=== PATIENT | male | born 1940 | race Caucasian/White ===

== ENCOUNTER 2017-11-02 22:20 | Inpatient (IN) | payer MEDICARE ==
[2017-11-02 23:05] LABS: #Basophils 0.1 thou/uL (0.0-0.2); #Eosinphils 0.4 thou/uL (0.0-0.7); #Lymphocytes 2.6 thou/uL (1.20-3.40); #Monocytes 0.7 thou/uL (0.11-0.59); #Neutrophils 4.1 thou/uL (1.40-6.50); %Basophils 0.7 % (0.0-1.0); %Eosinophils 5.1 % (0.0-10.0); %Lymphocytes 32.7 % (21.0-51.0); %Monocytes 9.3 % (0.0-10.0); %Neutrophils 52.1 % (42.0-75.0); Hemoglobin 10.6 g/dL (14.0-18.0); Mean Corpuscular HGB CONC 32.8 g/dL (32.0-36.0); Mean Corpuscular Hemoglobin 25.1 pg (27.0-31.0); Mean Corpuscular Volume 76.5 fl (80.0-94.0); Mean Platelet Volume 7.1 fL (7.4-10.4); Platelet Count 263 thou/uL (130-400); RBC Distribution Width 15.2 % (11.5-14.5); Red Blood Cell (RBC) Count 4.21 mill/uL (4.70-6.10); White Blood Cell (WBC) Count 7.9 thou/uL (4.8-10.8)
[2017-11-02 23:25] LABS: ALT (SGPT) 12 U/L (8-55); AST (SGOT) 16 U/L (5-34); Albumin 4.2 g/dL (3.4-4.8); Alkaline Phosphatase 110 U/L (40-150); Anion Gap 14 mmol/L (10-20); BUN (Urea Nitrogen) 16 mg/dL (8.4-25.7); Bilirubin, Total 0.4 mg/dL (0.2-1.2); Calc. Creatinine Clearance 0 mL/min (70-130); Calcium 9.6 mg/dL (7.8-10.44); Carbon Dioxide 26 mmol/L (23-31); Chloride 100 mmol/L (98-107); Estimated GFR-MDRD 61; Globulin 3.6 g/dL (2.4-3.5); Glucose 172 mg/dL (83-110); Lipase 32 U/L (8-78); Magnesium 1.8 mg/dL (1.6-2.6); Potassium 3.6 mmol/L (3.5-5.1); Protein, Total 7.8 g/dL (5.8-8.1); Sodium 136 mmol/L (136-145)
[2017-11-02 23:28] LABS: CKMB 1.5 ng/mL (0-6.6); Troponin I 0.036 ng/mL (< 0.028)
--- NOTE | 2017-11-02 23:31 | RAD ---
AP VIEW OF THE CHEST: 11/02/17 INDICATION: Chest pain with dizziness. COMPARISON: None. FINDINGS: There is moderate cardiomegaly. Pulmonary vasculature appears within normal limits. No air space cons olidation or pleural effusion is evident. There are numerous surgical clips within the left axillary region. There is elevation of the left humeral head with narrowing of the left acromiohumeral interva l which likely is reflective of rotator cuff insufficiency. There is moderate glenohumeral osteoarthr osis bilaterally. IMPRESSION: 1. No definite acute cardiopulmonary abnormality. 2. Mild cardiomegaly without evidence of cardiac decompensation. POS: [facility]
[2017-11-02] MEDS ORDERED: Diltiazem 125 MG in Sodium Chloride 0.9% 100 ML IVPB SCH (23:45)
[2017-11-03] MEDS ORDERED: Esmolol 2,500 MG/250 ML 250 ML IVPB SCH (00:30)
[2017-11-03] MEDS ORDERED: Esmolol 100 MG/10 ML VIAL IVP SCH (00:30)
[2017-11-03 01:52] LABS: Bilirubin Negative (Negative); Blood, Urine Large (Negative); Clarity CLEAR (Clear); Glucose, Urine (Dipstick) Negative (Negative); Leukocyte Small (Negative); Nitrite Negative (Negative); Protein, Urine (Dipstick) Trace mg/dL (Neg-Trace); Specific Gravity, Urine 1.016 (1.002-1.036); Urobilinogen 0.2 mg/dL (0.2-1.0)
[2017-11-03 01:55] LABS: Bacteria/HPF None Seen HPF (None Seen); Hyaline Casts/LPF 0-3 HYALINE CAST LPF (0-3 Hyaline); Pathc Cast-AUWi Flag 0.14 (0-2.49); RBC/HPF GREATER THAN 50-TNTC HPF (0-3); Squamous Epithelial 0-3 HPF (0-3)
[2017-11-03 02:20] LABS: Troponin I 0.058 ng/mL (< 0.028)
[2017-11-03] MEDS ORDERED: Ondansetron HCl/PF 4 MG/2 ML Vial IVP PRN ×2 (02:52→03:56)
[2017-11-03] MEDS ORDERED: Ondansetron ODT 4 MG TAB SL PRN (02:52)
[2017-11-03] MEDS ORDERED: Sodium Chloride 0.45% 1,000 ML IV SCH (03:00)
[2017-11-03 03:15] VITALS: BMI 26.1
[2017-11-03] MEDS ORDERED: Dextrose 5% in Water 1,000 ML IV PRN (03:56)
[2017-11-03] MEDS ORDERED: HumaLOG 300 UNITS/3 ML VIAL SC PRN (03:56)
[2017-11-03] MEDS ORDERED: Dextrose 50% Abboject 50 ML SYRINGE SLOW IVP PRN (03:56)
[2017-11-03] MEDS ORDERED: Acetaminophen 500 MG TAB PO PRN (03:56)
[2017-11-03] MEDS ORDERED: cloNIDine 0.1 MG TAB PO PRN (03:56)
[2017-11-03] MEDS ORDERED: hydrALAZINE 20 MG/ML VIAL SLOW IVP PRN (03:56)
[2017-11-03] MEDS ORDERED: Nitroglycerin 0.4 MG TAB (25 Tab Bottle) SL PRN (03:56)
[2017-11-03] MEDS ORDERED: Ondansetron ODT 4 MG TAB PO PRN (03:56)
[2017-11-03] MEDS ORDERED: Diltiazem 125 MG in Sodium Chloride 0.9% 100 ML IVPB SCH (04:00)
[2017-11-03] MEDS: Diltiazem 125 MG in Sodium Chloride 0.9% 100 ML IVPB SCH ×2 (05:21→17:00)
--- NOTE | 2017-11-03 06:07 | HP ---
DATE OF ADMISSION: 11/03/2017 PRIMARY CARE PROVIDER: Dr. Shah in [place], [place]. CHIEF COMPLAINT: Chest pain. HISTORY OF PRESENT ILLNESS: This is a 77-year-old male who presents to [facility] Emergency Department after recent admission to [facility] for chest pain in the last 48 hours. The patient apparently experienced crushing substernal chest pain 3 days prior to this evaluation, which caused him to pass out. The patient was referred to the hospital aft er seeing his primary care provider in [place], at which patient underwent cardiac stress testing and echocardiogram evaluation. The patient apparently did not see a contact representative during his hospital stay, at which point, the patient and the family are upset, apparently leaving against medical advic e out of the hospital and coming to [facility] for further workup. The patien t admits to history of coronary artery disease, undergoing cardiac catheterization approximately 3 ti mes since the 1970s, most recently in the last 2 to 3 years at [facility]. The patient underwent cardiac catheterization showing evidence of varying degrees of blockage; however, the recommendations at the time of the study were for medical management. The patient denies taking any chronic aspirin or Plavix prior to this evaluation. The patient does state that he recently underwent a partial pro statectomy in [place] on 10/18/2017. The patient denied any specific fever, chills or shortness o f breath. In the emergency room, the patient underwent general evaluation with initial EKG showing a trial flutter with rapid ventricular response and variable AV block with heart rates in 110s to 120s. Screening metabolic survey also showed evidence of possible urinary tract infection, at which point patient received Levaquin 750 mg x1 dose. The patient was placed on IV esmolol, given aspirin 324 m g and intravenous normal saline at 500 mL x1 dose a bolus. The patient was transferred to the [facility] al Care Unit for further evaluation. PAST MEDICAL HISTORY: 1. Coronary artery disease, medically managed. 2. Benign prostatic hypertrophy status post transurethral resection of the prostate. 3. Hypertension. 4. History of melanoma status post resection. 5. Diabetes mellitus type 2. 6. Cataracts. 7. Chronic microcytic anemia. 8. Hyperlipidemia. PAST SURGICAL HISTORY: 1. Status post skin resection for melanoma. 2. Status post prostatectomy. 3. Status post bilateral cataract removal. 4. Status post cardiac catheterization x3. CURRENT MEDICATIONS: 1. Allopurinol 100 mg 1 tab p.o. b.i.d. 2. Lipitor 20 mg p.o. daily. 3. Hydrochlorothiazide 25 mg p.o. daily. 4. NPH insulin 25 units subcutaneously q.a.m. and 20 units subcutaneously at bedtime. 5. Metformin 1000 mg p.o. b.i.d. 6. Toprol-XL 25 mg p.o. daily. 7. Flomax 0.4 mg p.o. daily. ALLERGIES: PENICILLIN. FAMILY HISTORY: Positive for hypertension and diabetes. SOCIAL HISTORY: The patient resides in [place], [place]. Retired after working for the [employer] for 35 years. and accompanied by his daughter in the hospital. No current alcohol, tobacco or illicit drug use. REVIEW OF SYSTEMS: The following complete review of systems was negative, unless otherwise mentioned in the HPI or below: Constitutional: Weight loss or gain, ability to conduct usual activities. Sk in: Rash, itching. Eyes: Double vision, pain. ENT/Mouth: Nose bleeding, neck stiffness, pain, te nderness. Cardiovascular: Palpitations, dyspnea on exertion, orthopnea. Respiratory: Shortness of breath, wheezing, cough, hemoptysis, fever or night sweats. Gastrointestinal: Poor appetite, abdom inal pain, heartburn, nausea, vomiting, constipation, or diarrhea. Genitourinary: Urgency, frequenc y, dysuria, nocturia. Musculoskeletal: Pain, swelling. Neurologic/Psychiatric: Anxiety, depressio n. Allergy/Immunologic: Skin rash, bleeding tendency. Otherwise negative except as stated per HPI. PHYSICAL EXAMINATION: VITAL SIGNS: Currently, blood pressure 135/73, pulse 98, respiratory rate 17, temperature 98.1 degre es Fahrenheit, O2 saturation is 95% on room air. GENERAL APPEARANCE: This is a 77-year-old male, alert and oriented x3, pleasant, in no acu te distress. HEENT: Pupils are equal, round, and reactive to light and accommodation. Extraocular muscles are in tact. No scleral icterus, no conjunctival injection. Nares patent. OP is clear. Teeth in fair rep air. NECK: Supple, no cervical adenopathy, no thyromegaly, no carotid bruits, no JVD appreciated. Cervic al spine with full active and passive range of motion. CHEST: Few scattered coarse breath sounds in the bases bilaterally. CARDIOVASCULAR: S1, S2 with irregular rate and rhythm. ABDOMEN: Obese, soft, nontender, nondistended. Bowel sounds are positive in all four quadrants. Th ere is no hepatosplenomegaly, no abdominal bruits, no rebound or guarding appreciated. EXTREMITIES: Warm and dry with fair turgor. No clubbing, cyanosis or asymmetric edema appreciated. Pulses palpable distally at the dorsalis pedis, posterior tibial, and popliteal arteries bilaterally . Capillary refill less than 2 seconds. NEUROLOGIC: Cranial nerves II-XII are grossly intact. No focal or lateralizing signs appreciated. PERTINENT LABORATORY AND X-RAY FINDINGS: Sodium 136, potassium is 3.6, chloride 100, CO2 of 26, BUN 16, creatinine 1.16 with estimated GFR of 61, glucose 172, calcium 9.6, magnesium 1.8. LFTs within n ormal limits. Troponin I ranged between 0.036 to 0.058. BNP 90, albumin 4.2, lipase 32. TSH 3.75. CBC showed a white blood cell count of 7.9, hemoglobin of 11, hematocrit 32, MCV 77, platelet count 263. Urinalysis showed large blood with small leukocyte esterase, greater than 50 to too numerous to count rbc's per high power field, 11-20 wbc's per high power field. Portable chest x-ray dated 10/06 showed no acute cardiopulmonary process. Mild cardiomegaly. EKG dated 11/02/2017 by my inter pretation shows atrial flutter with variable AV block, heart rates in the 115. Right bundle branch b lock pattern noted. Left axis deviation noted. Voltage criteria consistent with left ventricular hy pertrophy. ASSESSMENT AND PLAN: 1. Atrial flutter with variable AV block and rapid ventricular response. The patient will be admitt ed to the critical care unit. We will continue Cardizem drip at 10 mg per hour. We will continue ra te control measures. Initiate enoxaparin 80 mg subcutaneously q.12 hours. We will consult Cardiology service in the a.m. for evaluation. The patient may need evaluation by the Electrophysiology Servic e and consideration for radiofrequency ablation. We will obtain recent 2D transthoracic echocardiogr am performed at [facility]. Continue aspirin 325 mg daily. 2. Elevated troponin I. Suspect demand ischemic state given atrial flutter with rapid ventricular r esponse. We will consult Cardiology Service for further evaluation. The patient with known history of chronic coronary artery disease medically managed. 3. Urinary tract infection. Suspected given urinalysis findings. We will continue Levaquin 500 mg IV q.24 hours. Await final urine culture results. 4. Chronic kidney disease stage 2. Avoid nephrotoxic agents and contrast media. Repeat creatinine in the a.m. 5. Diabetes mellitus type 2, insulin requiring. Insulin sliding scale for reflexive coverage. ADA diet. Accu-Cheks a.c. and at bedtime. Resume NPH insulin 25 units subcutaneously q.a.m. and 20 unit s subcutaneously at bedtime. 6. Hypertension. Resume home antihypertensive regimen and monitor clinical response. 7. Prophylaxis. Sequential compression devices while in bed. Pepcid 20 mg p.o. b.i.d. PT evaluati on when clinically stabilizing. 8. Code status is FULL. Surrogate medical decision maker is the patient's daughter.
[2017-11-03 06:15] LABS: Troponin I 0.042 ng/mL (< 0.028)
[2017-11-03] MEDS ORDERED: Aspirin 325 MG TAB PO SCH ×2 (09:00)
[2017-11-03 09:25] LABS: Anion Gap 15 mmol/L (10-20); BUN (Urea Nitrogen) 14 mg/dL (8.4-25.7); Calc. Creatinine Clearance 73 mL/min (70-130); Calcium 9.1 mg/dL (7.8-10.44); Carbon Dioxide 23 mmol/L (23-31); Chloride 103 mmol/L (98-107); Estimated GFR-MDRD 70; Glucose 131 mg/dL (83-110); Potassium 3.5 mmol/L (3.5-5.1); Sodium 137 mmol/L (136-145)
[2017-11-03 09:27] LABS: Mean Corpuscular HGB CONC 31.3 g/dL (32.0-36.0); Mean Corpuscular Hemoglobin 24.9 pg (27.0-31.0); Mean Corpuscular Volume 79.6 fl (80.0-94.0); Mean Platelet Volume 7.7 fL (7.4-10.4); Platelet Count 234 thou/uL (130-400); RBC Distribution Width 15.8 % (11.5-14.5); White Blood Cell (WBC) Count 6.4 thou/uL (4.8-10.8)
[2017-11-03 09:42] LABS: Band 2 % (5-11); Eosinophils 7 % (0-10); Lymphocytes 19 % (21-51); MDiff Complete? YES; Monocytes 8 % (0-10); Neutrophil 63 % (42-75); PLT Morphology Comment Appears Adequate; Polychromasia SLIGHT = 2-3 cells (100X) (0-2/hpf)
[2017-11-03] MEDS: Tamsulosin HCl 0.4 MG CAP PO SCH (10:08)
[2017-11-03] MEDS: Atorvastatin Calcium 20 MG TAB PO SCH (10:08)
[2017-11-03] MEDS: Enoxaparin Sodium 80 MG/0.8 ML SYRINGE SC SCH ×2 (10:08→21:17)
[2017-11-03] MEDS: Famotidine 20 MG TAB PO SCH ×2 (10:09→21:16)
--- NOTE | 2017-11-03 14:12 | CON ---
DATE OF SERVICE: 11/03/2017 SERVICE: Pulmonary Medicine. REASON FOR CONSULTATION: ICU patient. HISTORY OF PRESENT ILLNESS: The patient is a 77-year-old white male. He was in his usual state of health on Sunday. He had a very sharp chest discomfort and then syncopized. He lost consciousness, but does not know how long he was down for. He does not remember tripping or falling. He woke up on the ground. He thought nothing other than this chest pain was gone, so he went on with his day. Later on, he was telling his daughter that event had occurred and she brought him to the emergency department where he was discovered to be in atrial fibrillation with RVR. He currently denies any chest discomfort, nausea or vomiting. He was previously admitted to an outside facility and subsequently transferred here for higher level of care. PAST MEDICAL HISTORY: 1. Atrial fibrillation, chronic. 2. Type 2 diabetes mellitus. 3. Hypertension. 4. Dyslipidemia. 5. History of multiple melanomas, status post resection. 6. Benign prostatic hypertrophy. 7. Microcytic anemia. 8. Dyslipidemia. PAST SURGICAL HISTORY: 1. Multiple skin resections for melanoma. 2. Prostatectomy. 3. Cataract surgeries, bilateral. 4. Cardiac catheterization, multiple. ALLERGIES: PENICILLIN. MEDICATIONS: List of his inpatient medications reviewed. No specific updates were made at this time. FAMILY HISTORY: Noncontributory. SOCIAL HISTORY: He lives in [place]. He has no current alcohol, tobacco or illicit drug use. He has no significant tobacco use. He is a and has no exposures to chemicals, dust asbestos or tuberculosis. REVIEW OF SYSTEMS: General, head, ears, eyes, nose, throat, cardiovascular, respiratory, GI, , musculoskeletal, neurologic and skin is negative except as mentioned in the HPI. PHYSICAL EXAMINATION: VITAL SIGNS: Afebrile, pulse 72, blood pressure 121/65, respirations 13, saturation 95% on room air. GENERAL: The patient is awake and alert. He is in no apparent distress. LUNGS: Excellent air entry. There is absolutely no prolonged expiratory phase or wheezing present. I do not appreciate crackles. HEART: Normal rate and irregular. ABDOMEN: Soft, nontender, nondistended. Bowel sounds are positive. MUSCULOSKELETAL: No cyanosis or clubbing. There is no pitting in the bilateral lower extremities. NEUROLOGIC: Grossly nonfocal. LABORATORIES: WBC 6.4, hemoglobin 10.0 and platelets 234,000. Band count is 2% . D-dimer 0.32. Basic metabolic profile is completely unremarkable and creatinine is gently down trending to 1.03. Troponin is down trending to 0.04. TSH is normal. Liver function studies were also unremarkable. BNP 90. Urinalysis is essentially unremarkable except for some microscopic hematuria. IMAGING: Chest x-ray demonstrates cardiomegaly. No overt infiltrates are suggestive of a decompensation of heart failure. ASSESSMENT: 1. Atrial flutter with rapid ventricular response, currently rate controlled. 2. Syncope. 3. Type 2 diabetes mellitus. PLAN: At this point, patient has stabilized and can safely transition to the telemetry unit. Cardizem drip can be weaned away over there. I will continue to follow as long as he remains inhouse, but on the floor, we will sign off. Please call with additional questions or concerns moving forward. 70 minutes have been devoted to this patient in various activities. I personally reviewed all imaging studies and laboratory data noted within this document. For fifty percent of this time, I was interacting with the patient at the bedside or coordinating care with the care team. For the remainder of the time I was immediately available to the patient in the hospital unit. MAKENNA
--- NOTE | 2017-11-03 14:50 | CON ---
DATE OF CONSULTATION: 11/03/2017 CRITICAL CARE NOTE Thirty minutes of critical care time. HISTORY OF PRESENT ILLNESS: Patient is a pleasant 77-year-old gentleman with a history of coronary artery disease who presented after losing consciousness and developing chest discomfort. The patient has a previous history of coronary artery disease. He states he has undergone several cardiac catheterizations. He was found to have moderate CAD. He has been followed by spray dyer, Dr. Church at [facility]. The patient states that he has also a history of an irregular heart rhythm,but he is not on anticoagulation. The patient apparently has a history of significant prostate bleeding. The patient was in his usual state of health when he swallowed some chills, and felt pain in his chest that lasted few seconds and then suddenly lost consciousness. The patient denies having further discomfort. The patient denies having any palpitations. PAST MEDICAL HISTORY: 1. Coronary artery disease. 2. Hypertension. 3. Diabetes mellitus. 4. Hypercholesterolemia. 5. History of melanoma. 6. History of hemorrhage from his prostate. PAST SURGICAL HISTORY: Skin surgery. SOCIAL HISTORY: Nonsmoker. MEDICATION ON ADMISSION: Insulin 20 units subcu daily, metoprolol 25 b.i.d., insulin 25 daily, allopurinol 100 b.i.d., HCTZ 25 daily, Lipitor 20 at bedtime, and Flomax 0.4 daily. SOCIAL HISTORY: Nonsmoker. FAMILY HISTORY: Strong family history of coronary artery disease. ALLERGIES: He is allergic to PENICILLIN. PHYSICAL EXAMINATION: GENERAL APPEARANCE: This is a middle-aged gentleman in no acute distress. VITAL SIGNS: Blood pressure 133/83, heart rate is 73 and irregular. NECK: Showed no jugular vein distention. LUNGS: Clear to auscultation. HEART: Irregular rate and rhythm, normal S1, S2. ABDOMEN: Distended. EXTREMITIES: Showed trace edema. LABORATORY DATA AND IMAGING DATA: White blood count 6.4, hemoglobin 10.0, hematocrit 31.8, platelets are 234. His sodium is 137, potassium 3.5, chloride 103, bicarbonate 23, BUN 14, creatinine 1.0. D-dimer was 0.32. His EKG revealed atrial flutter with a right bundle branch block and left anterior fascicular block. IMPRESSION: 1. Atrial flutter. 2. Atypical chest pain. 3. History of coronary artery disease. 4. Diabetes mellitus. 5. Dyslipidemia. 6. Obesity. This gentleman had a syncopal episode after he swallowed some pills. The patient does have evidence of significant conduction disease on his electrocardiogram. We would recommend EP evaluation with possible ablation. We will try to obtain the records from his spray dyer in [place] . We will check an echocardiogram. The patient will remain on Lovenox. He will be monitored for evidence of hemorrhage. We will follow this patient with you through his hospitalization. Thirty minutes of critical care time. MAKENNA
[2017-11-03] MEDS ORDERED: Polyethylene Glycol 3350 17 GM Packet PO PRN (18:08)
[2017-11-03] MEDS: HumaLOG 300 UNITS/3 ML VIAL SC PRN (18:55)
[2017-11-03] MEDS: Senokot S 8.6-50 MG TAB PO SCH (21:16)
[2017-11-04 04:35] LABS: #Eosinphils 0.4 thou/uL (0.0-0.7); #Lymphocytes 2.1 thou/uL (1.20-3.40); #Monocytes 0.7 thou/uL (0.11-0.59); #Neutrophils 4.7 thou/uL (1.40-6.50); %Basophils 0.5 % (0.0-1.0); %Eosinophils 5.1 % (0.0-10.0); %Lymphocytes 26.3 % (21.0-51.0); %Monocytes 9.1 % (0.0-10.0); Hemoglobin 9.5 g/dL (14.0-18.0); Mean Corpuscular HGB CONC 32.6 g/dL (32.0-36.0); Mean Corpuscular Hemoglobin 25.1 pg (27.0-31.0); Mean Corpuscular Volume 76.9 fl (80.0-94.0); Mean Platelet Volume 7.2 fL (7.4-10.4); Platelet Count 211 thou/uL (130-400); RBC Distribution Width 15.4 % (11.5-14.5); Red Blood Cell (RBC) Count 3.78 mill/uL (4.70-6.10)
[2017-11-04 04:44] LABS: Albumin 3.6 g/dL (3.4-4.8); Anion Gap 12 mmol/L (10-20); BUN (Urea Nitrogen) 12 mg/dL (8.4-25.7); BUN/Creatinine Ratio 12.12; Calc. Creatinine Clearance 76 mL/min (70-130); Carbon Dioxide 26 mmol/L (23-31); Chloride 104 mmol/L (98-107); Estimated GFR-MDRD 73; Glucose 142 mg/dL (83-110); Phosphorus 3.7 mg/dL (2.3-4.7); Potassium 3.5 mmol/L (3.5-5.1); Sodium 138 mmol/L (136-145)
[2017-11-04] MEDS: Famotidine 20 MG TAB PO SCH ×2 (08:45→20:55)
[2017-11-04] MEDS: Senokot S 8.6-50 MG TAB PO SCH ×2 (08:45→20:55)
[2017-11-04] MEDS: Tamsulosin HCl 0.4 MG CAP PO SCH (08:45)
[2017-11-04] MEDS: Atorvastatin Calcium 20 MG TAB PO SCH (08:46)
[2017-11-04] MEDS: HumaLOG 300 UNITS/3 ML VIAL SC PRN ×4 (08:47→23:49)
[2017-11-04] MEDS: Enoxaparin Sodium 80 MG/0.8 ML SYRINGE SC SCH (09:34)
[2017-11-04] MEDS: Diltiazem 125 MG in Sodium Chloride 0.9% 100 ML IVPB SCH ×2 (11:05→22:48)
--- NOTE | 2017-11-04 11:16 | PRG ---
DATE OF SERVICE: 11/04/2017 SERVICE: Pulmonary Medicine. INTERVAL HISTORY: The patient is doing fantastic from a respiratory standpoint. He has no chest concha n or shortness of breath. Unfortunately, he started having hematuria overnight. He is being just fi ne. At this point, has got no evidence of obstruction. PHYSICAL EXAMINATION: VITAL SIGNS: Afebrile, pulse 61, blood pressure 150/71, respirations 18, saturation 95% on room air. GENERAL: The patient is awake, alert, no apparent distress. LUNGS: Excellent air entry. There is no prolonged expiratory phase or wheezing. HEART: Normal rate and irregular. ABDOMEN: Soft, nontender, nondistended. Bowel sounds are positive. MUSCULOSKELETAL: No cyanosis or clubbing. No pitting in the bilateral lower extremities. NEUROLOGIC: Grossly nonfocal. LABORATORY DATA: WBC 8.0, hemoglobin 9.5, platelets 211,000. Basic metabolic profile, magnesium, an d phosphorus are unremarkable. ASSESSMENT: 1. Atrial flutter with variable conduction. 2. Syncope. 3. Type 2 diabetes mellitus. 4. Hematuria with recent prostatectomy, DISCUSSION AND PLAN: I will repeat hemoglobin and hematocrit tomorrow. At this point, he is stable for transition out of the ICU to the telemetry unit. Pulmonary or Critical Care will sign off when h e arrives on the floor. Please call with additional questions or concerns moving forward.
--- NOTE | 2017-11-04 20:42 | PDOC.PN ---
- Subjective Encounter Start Date: 11/04/17 Encounter Start Time: 11:00 Patient seen and examined. On Cardizem drip. Events noted. Anticoag on hold due to gross hematuria - Objective Resuscitation Status: Resuscitation Status FULL:Full Resuscitation MAR Reviewed: Yes Vital Signs & Weight: Vital Signs (12 hours) Temp Pulse Pulse BP BP 11/04/17 16:00 99.1 F 11/04/17 13:09 111 H 91 153/74 H 142/76 H 11/04/17 12:00 98.6 F Weight Weight 187 lb 6.287 oz Most Recent Monitor Data Heart Rate from ECG 66 NIBP 145/63 NIBP BP-Mean 93 Respiration from ECG 18 SpO2 94 I&O: 11/03/17 11/04/17 11/05/17 06:59 06:59 06:59 Intake Total 255 1561 1414 Output Total 400 1400 850 Balance -145 161 564 Result Diagrams: 11/05/17 04:19 11/04/17 03:57 Additional Labs: Accuchecks 11/04/17 11/04/17 11/04/17 15:54 11:11 08:02 POC Glucose 151 H 169 H 161 H 11/04/17 11/04/17 11/03/17 06:19 03:58 21:17 POC Glucose 165 H 144 H 176 H EKG Reviewed by me: Yes (Tele Aflutter) Phys Exam - Physical Examination Constitutional: NAD Neck: no JVD Respiratory: no wheezing, no rales, no rhonchi, clear to auscultation bilateral Cardiovascular: no rub, irregular 2/6 SM M area, no heaves/pulsations Gastrointestinal: soft, non-tender, no distention, positive bowel sounds Musculoskeletal: no edema Neurological: non-focal, normal sensation, moves all 4 limbs Psychiatric: normal affect, A&O x 3 Dx/Plan - Plan DVT proph w/SCDs IMPRESSION: 1. A flutter with RVR - on Cardizem drip, PO Metoprolol 2. Gross hematuria due to anticoag 3. BPH with recent surgery 4. HTN 5. DM2 6. HLD / Elevated troponins due to demand ischemia / CKD 2 PLAN: * Cont low dose ASA * Anticoag on hold * Monitor HH * Urology input appreciated * Cont Flomax * Cont sliding scale * Critical care/Cardio following Review of Systems - Review of Systems Respiratory: negative: Cough, Dry, Shortness of Breath, Hemoptysis, SOB with Excertion, Pleuritic Pain, Sputum, Wheezing Cardiovascular: negative: chest pain, palpitations, orthopnea, paroxysmal nocturnal dyspnea, edema, light headedness, other Gastrointestinal: negative: Nausea, Vomiting, Abdominal Pain, Diarrhea, Constipation, Melena, Hematochezia, Other - Medications/Allergies Allergies/Adverse Reactions: Allergies Allergy/AdvReac Type Severity Reaction Status Date / Time Penicillins Allergy Verified 11/02/17 23:49 Medications: Current Medications Acetaminophen (Tylenol) 1,000 mg PO Q6H PRN PRN Reason: Headache/Fever or Mild Pain Aspirin (Aspirin Chewable) 81 mg PO DAILY [facility] Last Admin: 11/04/17 09:33 Dose: 81 mg Atorvastatin Calcium (Lipitor) 20 mg PO DAILY [facility] Last Admin: 11/04/17 08:46 Dose: 20 mg Clonidine (Catapres) 0.1 mg PO Q4H PRN PRN Reason: Systolic BP > 180 Dextrose/Water (Dextrose 50%) 25 gm SLOW IVP PRN PRN PRN Reason: Hypoglycemia Famotidine (Pepcid) 20 mg PO BID [facility] Last Admin: 11/04/17 08:45 Dose: 20 mg Glucagon (Glucagon) 1 mg IM PRN PRN PRN Reason: Hypoglycemia Hydralazine HCl (Apresoline) 10 mg SLOW IVP Q4H PRN PRN Reason: Systolic BP > 180 Dextrose/Water (D5w) 1,000 mls @ 0 mls/hr IV .Q0M PRN; As Directed PRN Reason: Hypoglycemia Diltiazem HCl 125 mg/ Sodium (Chloride) 125 mls @ 10 mls/hr IVPB INF DEVONTE; 10 MG /HR PRN Reason: Protocol Last Admin: 11/04/17 11:05 Dose: 125 mls Insulin Human Lispro (Humalog) 0 units SC .MILD SLIDING SCALE PRN PRN Reason: Mild Correctional Scale Last Admin: 11/04/17 15:53 Dose: 2 unit Insulin Human Lispro (Humalog) 0 units SC .BEDTIME SLIDING SC PRN PRN Reason: Bedtime Correctional Scale Metoprolol Succinate (Toprol Xl) 25 mg PO BID [facility] Last Admin: 11/04/17 08:45 Dose: 25 mg Nitroglycerin (Nitrostat) 0.4 mg SL Q5MIN PRN PRN Reason: Chest Pain Ondansetron HCl (Zofran Odt) 4 mg PO Q6H PRN PRN Reason: Nausea/Vomiting Ondansetron HCl (Zofran) 4 mg IVP Q6H PRN PRN Reason: Nausea/Vomiting Polyethylene Glycol (Miralax) 17 gm PO DAILY PRN PRN Reason: Constipation Senna/Docusate Sodium (Senokot S) 1 tab PO BID [facility] Last Admin: 11/04/17 08:45 Dose: 1 tab Tamsulosin HCl (Flomax) 0.4 mg PO DAILY [facility] Last Admin: 11/04/17 08:45 Dose: 0.4 mg
[2017-11-05 05:01] LABS: Hemoglobin 9.3 g/dL (14.0-18.0)
[2017-11-05] MEDS: HumaLOG 300 UNITS/3 ML VIAL SC PRN (06:59)
[2017-11-05] MEDS: Atorvastatin Calcium 20 MG TAB PO SCH (09:12)
[2017-11-05] MEDS: Famotidine 20 MG TAB PO SCH ×2 (09:12→21:03)
[2017-11-05] MEDS: Senokot S 8.6-50 MG TAB PO SCH ×2 (09:13→21:03)
[2017-11-05] MEDS: Tamsulosin HCl 0.4 MG CAP PO SCH (09:13)
--- NOTE | 2017-11-05 10:19 | PRG ---
DATE OF SERVICE: 11/05/2017 SERVICE: Pulmonary Medicine. INTERVAL HISTORY: The patient is doing fantastic from a respiratory standpoint. He denies any chest pain, nausea, vomiting or diarrhea. He remains in atrial flutter. His rate is under very good cont rol. He is not having any palpitations or chest pain. PHYSICAL EXAMINATION: VITAL SIGNS: Afebrile, pulse 67, blood pressure 132/64, respirations 16, saturation 97% on room air. GENERAL: The patient is awake, alert, no apparent distress. LUNGS: Excellent air entry. There is no prolonged expiratory phase. I do not appreciate any crackl es. HEART: Normal rate and regular. ABDOMEN: Soft, nontender, nondistended. Bowel sounds are positive. MUSCULOSKELETAL: No cyanosis or clubbing. There is no pitting in the bilateral lower extremities. NEUROLOGIC: Grossly nonfocal. LABORATORY DATA: Hemoglobin 9.3. Blood sugars ranged from 151-170. IMAGING: Echocardiogram demonstrates a 55%-60% ejection fraction. Left atrium is mildly dilated. M oderate left ventricular hypertrophy. Mild to moderate mitral regurgitation by MRI. Otherwise, the heart seems to be fairly healthy. ASSESSMENT: 1. Atrial flutter with variable rate, currently rate controlled. 2. Syncope. 3. Diabetes mellitus. 4. Hematuria following recent prostatectomy, DISCUSSION AND PLAN: The patient is doing fantastic from a respiratory standpoint. Pulmonary or Cri tical Care will continue to follow in this location. When he goes to the floor, he will have no furt her requirements for critical care, and I will sign off. He may be going [facility] for an [facility] today or tomorrow.
[2017-11-05 10:38] LABS: #Basophils 0.1 thou/uL (0.0-0.2); #Eosinphils 0.3 thou/uL (0.0-0.7); #Monocytes 0.7 thou/uL (0.11-0.59); #Neutrophils 5.1 thou/uL (1.40-6.50); %Basophils 0.9 % (0.0-1.0); %Eosinophils 3.1 % (0.0-10.0); %Lymphocytes 24.4 % (21.0-51.0); %Monocytes 8.8 % (0.0-10.0); %Neutrophils 62.8 % (42.0-75.0); Hemoglobin 10.1 g/dL (14.0-18.0); Mean Corpuscular HGB CONC 31.1 g/dL (32.0-36.0); Mean Corpuscular Hemoglobin 24.7 pg (27.0-31.0); Mean Corpuscular Volume 79.5 fl (80.0-94.0); Mean Platelet Volume 7.6 fL (7.4-10.4); Platelet Count 249 thou/uL (130-400); RBC Distribution Width 16.3 % (11.5-14.5); Red Blood Cell (RBC) Count 4.08 mill/uL (4.70-6.10)
[2017-11-05 10:55] LABS: Anion Gap 14 mmol/L (10-20); BUN (Urea Nitrogen) 12 mg/dL (8.4-25.7); Calc. Creatinine Clearance 70 mL/min (70-130); Calcium 9.6 mg/dL (7.8-10.44); Carbon Dioxide 22 mmol/L (23-31); Chloride 103 mmol/L (98-107); Estimated GFR-MDRD 66; Glucose 145 mg/dL (83-110); Potassium 3.7 mmol/L (3.5-5.1); Sodium 135 mmol/L (136-145)
[2017-11-05] MEDS ORDERED: Propofol 200 MG/20 ML VIAL ONE ×2 (11:02)
[2017-11-05 11:37] LABS: INR-International Normal Ratio 1.1; Prothrombin Time 13.9 SEC (12.0-14.7)
[2017-11-05 11:38] LABS: PTT 32.3 SEC (22.9-36.1)
[2017-11-05] MEDS ORDERED: Midazolam HCl 2 mg/2 ml Vial ONE (16:11)
[2017-11-05] MEDS ORDERED: Fentanyl 100 MCG/2 ML VIAL ONE (16:11)
[2017-11-05] MEDS ORDERED: Propofol 500 MG/50 ML VIAL ONE (16:15)
[2017-11-05] MEDS ORDERED: Diprivan 20 ML ONE (16:20)
[2017-11-05] MEDS ORDERED: Lidocaine 1% (PF) 30 ML VIAL ONE (16:26)
[2017-11-05] MEDS ORDERED: Ondansetron HCl/PF 4 MG/2 ML Vial IVP PRN ×2 (17:09→19:12)
[2017-11-05] MEDS ORDERED: HYDROmorphone 2 MG/ML VIAL SLOW IVP PRN (17:09)
[2017-11-05] MEDS ORDERED: Morphine Sulfate 2 MG/ML SYRINGE SLOW IVP PRN (17:09)
[2017-11-05] MEDS ORDERED: Promethazine HCl 25 MG/ML VIAL SLOW IVP PRN (17:09)
[2017-11-05] MEDS ORDERED: DOPamine 400 MG/D5W 250 ML 250 ML ONE (17:38)
[2017-11-05] MEDS ORDERED: Heparin 10,000 UNITS/1 ML VIAL ONE (17:38)
[2017-11-05] MEDS ORDERED: Lidocaine 1% w/Epinephrine 1:100K 30 ML VIAL ONE (17:48)
[2017-11-05] MEDS ORDERED: Nitroglycerin 0.4 MG TAB (25 Tab Bottle) SL PRN (19:12)
[2017-11-05] MEDS ORDERED: traMADol HCl 50 MG TAB PO PRN (19:12)
[2017-11-05] MEDS ORDERED: diphenhydrAMINE 25 MG CAP PO PRN (19:12)
[2017-11-05] MEDS ORDERED: Silver Sulfadiazine 1% Cream 50 GM JAR TOP PRN (19:12)
[2017-11-05] MEDS ORDERED: Mag-Al 1200 mg/1200 mg/30 ML UDCUP PO PRN (19:12)
[2017-11-05] MEDS ORDERED: Temazepam 15 MG CAP PO PRN (19:12)
[2017-11-05] MEDS ORDERED: Acetaminophen 325 MG TAB PO PRN (19:12)
[2017-11-05] MEDS ORDERED: Bisacodyl 10 MG SUPP PR PRN (19:12)
[2017-11-05] MEDS: Enoxaparin Sodium 60 MG/0.6 ML SYRINGE SC SCH (21:03)
--- NOTE | 2017-11-05 21:27 | CON ---
DATE OF CONSULTATION: 11/05/2017 ELECTROPHYSIOLOGY CONSULTATION This is an electrophysiology consultation dictated for Dr. Sharif Evans. REFERRING PHYSICIAN: Sanjay Morales MD REASON FOR CONSULTATION: Atrial flutter. HISTORY OF PRESENT ILLNESS: Mr. Jean-Baptiste is a very pleasant 77-year-old male who presented to the emergency room after having passed out at home. He reports he was sitting in his chair at home taking his morning medications. When he took a drink of water to swallow his pills, he had a sharp sensation of pain and passed out, and woke up lying back in his chair. He has never had an episode like this in the past. He denies any perceived heart racing or room spinning sensations leading up to his event, and did not have any urinary or bowel incontinence associated. This was an unwitnessed event. He does have history of coronary artery disease diagnosed by left heart catheterization with reportedly 1 vessel with a 70% blockage, otherwise all less than 70%. He has not had a stent in the past. His program lead is Dr. Church at [facility]. He also reports that he has had a longstanding history of irregular heart rhythms for approximately 10 years. Most of his episodes occur postoperatively after his multiple surgeries to treat his melanoma. He is not on anticoagulation. He recently underwent surgery for prostate resection 15 days ago. While hospitalized, he was started on Lovenox, but developed significant hematuria and stated that he was peeing dark blood with clots and the Lovenox was discontinued. He has continued in atrial flutter and is on a diltiazem drip currently. At this time, Mr. Jean-Baptiste reports that he is feeling well. He has not had any recent febrile illness, fevers, chills, malaise, or night sweats. He does endorse occasional heart racing, but denies any chest pain, stroke or stroke- like symptoms, or any additional syncopal episodes. He is resting comfortably up in the chair and states that he is able to move without limitation, but does experience shortness of breath with activities, especially at home when walking to the mailbox he will experience heart racing and shortness of breath that both resolve with rest. REVIEW OF SYSTEMS: A 12-point review of systems was conducted and is negative except that listed in the history of present illness. PAST MEDICAL HISTORY: 1. Mild on-occlusive Coronary artery disease, medically managed. No prior PCI or stenting. 2. Hypertension. 3. Diabetes. 4. Hypercholesterolemia. 5. Melanoma. 6. Benign prostatic hypertrophy with prior prostate resection in 10/2017. SOCIAL HISTORY: No history of tobacco use and no alcohol consumption. Negative for alcohol intake. Positive for remote history of tobacco use, but not currently smoking and negative for illicit drug use. FAMILY HISTORY: Father from sudden cardiac at the age of 68. Mother from heart failure at the age of 57 and also had diagnoses of coronary artery disease and diabetes. HOME MEDICATIONS: Insulin 20 units daily, metoprolol 25 mg b.i.d., allopurinol 100 mg b.i.d., hydrochlorothiazide 25 mg daily, Lipitor 20 mg p.o. at bedtime, and Flomax 0.4 mg at bedtime. ALLERGIES: PENICILLIN. PHYSICAL EXAMINATION: VITAL SIGNS: Temperature 98.1 degrees Fahrenheit, pulse 71, blood pressure 124/ 81, respirations are 19, oxygen saturation is 96%. GENERAL: This is a well-appearing, well-groomed, well-nourished, middle-aged gentleman in no acute distress. HEENT: He is normocephalic, atraumatic. His sclerae are anicteric and EOMs are intact. NECK: Supple without jugular venous distention. Thyroid is nonpalpable and there is no lymphadenopathy. LUNGS: Clear to auscultation bilaterally without wheezes, crackles, or rhonchi. CARDIOVASCULAR: His heart rate is irregular with a variable rate. PMI is nondisplaced. EXTREMITIES: Warm and dry to touch without clubbing, cyanosis, or edema. ABDOMEN: Soft and nontender with palpable bowel tones throughout. There are no palpable masses. NEUROLOGIC: Grossly intact and is nonfocal. DATABASE: WBC 8, hemoglobin 10.1, hematocrit 32.4, platelet count is 294. Chemistry: Sodium 135, potassium 3.7, chloride 103, carbon dioxide 22, BUN is 12, creatinine 1.08. Echocardiogram on 11/05/2017, EF 55%-60%, left atrium is mildly dilated, moderate concentric LVH, LV size is normal, [id number] MR , mild TR. Telemetry and EKG Review: The patient is in typical atrial flutter with variable ventricular response, bifascicular block, and right bundle branch block. Currently, rates are well controlled on a diltiazem drip at 5 mg per hour. IMPRESSION: 1. Typical atrial flutter with rapid ventricular response, rate is well controlled with diltiazem drip. 2. History of mild coronary artery disease, medically managed. 3. Type 2 diabetes on insulin. 4. Dyslipidemia. 5. Obesity. 6. Elevated CHADS-VASc score of 5 on the basis of age over 75, hypertension history, vascular disease history, and diabetes history. 7. Gross hematuria, on Lovenox. Anticoagulation on hold at this time. RECOMMENDATIONS: A long discussion was had with the patient and his family regarding atrial arrhythmias, anticoagulation, and treatment options. We discussed medical management, cardioversion, as well as ablation for therapy. Risks and benefits were disclosed of all options. At this point, the patient is at elevated risk for stroke with a CHADS-VASc score of 5 and 7.2% risk for stroke; however, in the presence of gross hematuria, we recommend continuing to hold his anticoagulation. The patient will go for typical atrial flutter ablation later today after TIFFANIE to evaluate for intracardiac thrombus. We will also do an EP study to assess for additional arrhythmias as the patient had a syncopal episode and reports a history of atrial fibrillation. We have not seen atrial fibrillation since being hospitalized. If we do not see any further arrhythmias and the patient truly only has typical atrial flutter, i would hold off anticoagulation hence the wesley hematuria. if on monitor no further afib or flutter seen he will not need anticoagulation beyond 1 month post-ablation either. We also discussed loop recorder implantation for continued monitoring in the setting of paroxysmal atrial arrhythmias, syncopal episode, and interrupted anticoagulation therapy. All questions have been answered. The patient and his family verbalized understanding. The patient wishes to proceed with EP study, flutter ablation, and implantable loop recorder at the earliest convenience. Thank you for allowing us to participate in the care of this patient. MAKENNA
--- NOTE | 2017-11-05 22:09 | EKG ---
Test Reason : PREOP Blood Pressure : / mmHG Vent. Rate : 056 BPM Atrial Rate : 267 BPM P-R Int : 000 ms QRS Dur : 138 ms QT Int : 422 ms P-R-T Axes : -85 -37 225 degrees QTc Int : 407 ms Atrial flutter 4-1 AV conduction. Left axis deviation Right bundle branch block Left ventricular hypertrophy with repolarization abnormality Abnormal ECG When compared with ECG of 02-NOV-2017 22:33, (Unconfirmed) Vent. rate has decreased BY 60 BPM Confirmed by CHINEDU SHARP M.D. ([id number]) on 11/05/2017 10:09:13 PM Referred By: [facility] Confirmed By:CHINEDU SHARP M.D.
--- NOTE | 2017-11-05 22:49 | PDOC.PN ---
- Subjective Encounter Start Date: 11/05/17 Encounter Start Time: 12:00 Patient seen and examined. No new complaints. No overnight events. On Cardizem drip - Objective Resuscitation Status: Resuscitation Status FULL:Full Resuscitation MAR Reviewed: Yes Vital Signs & Weight: Vital Signs (12 hours) Temp 11/05/17 20:00 98.9 F 11/05/17 12:00 98.1 F Weight Weight 187 lb 6.287 oz Most Recent Monitor Data Heart Rate from ECG 84 NIBP 125/62 NIBP BP-Mean 73 Respiration from ECG 15 SpO2 94 I&O: 11/04/17 11/05/17 11/06/17 06:59 06:59 06:59 Intake Total 1561 1882 530 Output Total 1400 1275 500 Balance 161 607 30 Result Diagrams: 11/06/17 03:50 11/06/17 03:50 Additional Labs: Accuchecks 11/05/17 11/05/17 11/04/17 21:06 06:55 23:44 POC Glucose 154 H 170 H 160 H EKG Reviewed by me: Yes (Tele A flutter) Phys Exam - Physical Examination Constitutional: NAD Respiratory: no wheezing, no rhonchi Cardiovascular: RRR, no rub Gastrointestinal: soft, non-tender, positive bowel sounds Musculoskeletal: no edema Neurological: moves all 4 limbs Dx/Plan - Plan DVT proph w/lovenox IMPRESSION: 1. A flutter with RVR - on Cardizem drip with oral Metoprolol 2. Gross hematuria due to anticoag - clearing 3. BPH with recent surgery 4. HTN 5. DM2 6. HLD / Elevated troponins due to demand ischemia / CKD 2 / CAD PLAN: * Ablation today * EP input appreciated * Cont low dose ASA * Cont Flomax * Cont sliding scale * Urology/Critical care/Cardio following Review of Systems - Review of Systems Respiratory: negative: Cough, Dry, Shortness of Breath, Hemoptysis, SOB with Excertion, Pleuritic Pain, Sputum, Wheezing Cardiovascular: negative: chest pain, palpitations, orthopnea, paroxysmal nocturnal dyspnea, edema, light headedness, other - Medications/Allergies Allergies/Adverse Reactions: Allergies Allergy/AdvReac Type Severity Reaction Status Date / Time Penicillins Allergy Verified 11/02/17 23:49 Medications: Current Medications Acetaminophen (Tylenol) 1,000 mg PO Q6H PRN PRN Reason: Headache/Fever or Mild Pain Acetaminophen (Tylenol) 650 mg PO Q4H PRN PRN Reason: Mild Pain 1-3 Al Hydroxide/Mg Hydroxide (Maalox) 15 ml PO Q4H PRN PRN Reason: Heartburn or Indigestion Aspirin (Aspirin Chewable) 81 mg PO DAILY [facility] Last Admin: 11/05/17 09:11 Dose: 81 mg Atorvastatin Calcium (Lipitor) 20 mg PO DAILY [facility] Last Admin: 11/05/17 09:12 Dose: Not Given Bisacodyl (Dulcolax) 5 mg PO DAILYPRN PRN PRN Reason: CONSTIAPT Bisacodyl (Dulcolax) 10 mg VA DAILYPRN PRN PRN Reason: Constipation Clonidine (Catapres) 0.1 mg PO Q4H PRN PRN Reason: Systolic BP > 180 Dextrose/Water (Dextrose 50%) 25 gm SLOW IVP PRN PRN PRN Reason: Hypoglycemia Diphenhydramine HCl (Benadryl) 25 mg PO Q6H PRN PRN Reason: Itching Enoxaparin Sodium (Lovenox) 60 mg SC 0900,2100 [facility] Last Admin: 11/05/17 21:03 Dose: 60 mg Famotidine (Pepcid) 20 mg PO BID [facility] Last Admin: 11/05/17 21:03 Dose: 20 mg Glucagon (Glucagon) 1 mg IM PRN PRN PRN Reason: Hypoglycemia Hydralazine HCl (Apresoline) 10 mg SLOW IVP Q4H PRN PRN Reason: Systolic BP > 180 Dextrose/Water (D5w) 1,000 mls @ 0 mls/hr IV .Q0M PRN; As Directed PRN Reason: Hypoglycemia Diltiazem HCl 125 mg/ Sodium (Chloride) 125 mls @ 10 mls/hr IVPB INF DEVONTE; 10 MG /HR PRN Reason: Protocol Last Admin: 11/04/17 22:48 Dose: 125 mls Insulin Human Lispro (Humalog) 0 units SC .MILD SLIDING SCALE PRN PRN Reason: Mild Correctional Scale Last Admin: 11/05/17 06:59 Dose: 2 unit Insulin Human Lispro (Humalog) 0 units SC .BEDTIME SLIDING SC PRN PRN Reason: Bedtime Correctional Scale Metoprolol Succinate (Toprol Xl) 25 mg PO BID [facility] Last Admin: 11/05/17 21:02 Dose: 25 mg Nitroglycerin (Nitrostat) 0.4 mg SL Q5MIN PRN PRN Reason: Chest Pain Nitroglycerin (Nitrostat) 0.4 mg SL Q5MIN PRN PRN Reason: Chest Pain Ondansetron HCl (Zofran Odt) 4 mg PO Q6H PRN PRN Reason: Nausea/Vomiting Ondansetron HCl (Zofran) 4 mg IVP Q6H PRN PRN Reason: Nausea/Vomiting Ondansetron HCl (Zofran) 4 mg IVP Q6H PRN PRN Reason: Nausea/Vomiting Polyethylene Glycol (Miralax) 17 gm PO DAILY PRN PRN Reason: Constipation Senna/Docusate Sodium (Senokot S) 1 tab PO BID [facility] Last Admin: 11/05/17 21:03 Dose: 1 tab Silver Sulfadiazine (Silvadene) 0 gm TOP Q12H PRN PRN Reason: Rash/Topical Irritation Tamsulosin HCl (Flomax) 0.4 mg PO DAILY [facility] Last Admin: 11/05/17 09:13 Dose: Not Given Temazepam (Restoril) 15 mg PO HSPRN PRN PRN Reason: Insomnia Tramadol HCl (Ultram) 50 mg PO Q4H PRN PRN Reason: FOR MODERATE PAIN 4-6
[2017-11-06] MEDS: Bisacodyl 5 MG TAB PO PRN ×2 (00:53→09:46)
[2017-11-06 04:38] LABS: #Eosinphils 0.3 thou/uL (0.0-0.7); #Lymphocytes 1.6 thou/uL (1.20-3.40); #Monocytes 0.8 thou/uL (0.11-0.59); #Neutrophils 4.1 thou/uL (1.40-6.50); %Basophils 0.1 % (0.0-1.0); %Monocytes 11.1 % (0.0-10.0); %Neutrophils 60.8 % (42.0-75.0); Hemoglobin 8.9 g/dL (14.0-18.0); Mean Corpuscular HGB CONC 32.5 g/dL (32.0-36.0); Mean Corpuscular Hemoglobin 25.4 pg (27.0-31.0); Mean Corpuscular Volume 78.2 fl (80.0-94.0); Mean Platelet Volume 7.4 fL (7.4-10.4); Platelet Count 210 thou/uL (130-400); RBC Distribution Width 16.2 % (11.5-14.5); Red Blood Cell (RBC) Count 3.49 mill/uL (4.70-6.10); White Blood Cell (WBC) Count 6.7 thou/uL (4.8-10.8)
[2017-11-06 04:52] LABS: Albumin 3.6 g/dL (3.4-4.8); Anion Gap 10 mmol/L (10-20); BUN (Urea Nitrogen) 13 mg/dL (8.4-25.7); Calc. Creatinine Clearance 76 mL/min (70-130); Calcium 9.2 mg/dL (7.8-10.44); Carbon Dioxide 26 mmol/L (23-31); Chloride 105 mmol/L (98-107); Estimated GFR-MDRD 73; Glucose 172 mg/dL (83-110); Magnesium 2.1 mg/dL (1.6-2.6); Phosphorus 3.4 mg/dL (2.3-4.7); Potassium 3.7 mmol/L (3.5-5.1); Sodium 137 mmol/L (136-145)
[2017-11-06] MEDS: HumaLOG 300 UNITS/3 ML VIAL SC PRN ×2 (05:43→11:33)
[2017-11-06] MEDS: Atorvastatin Calcium 20 MG TAB PO SCH (08:20)
[2017-11-06] MEDS: Enoxaparin Sodium 60 MG/0.6 ML SYRINGE SC SCH ×2 (08:20→21:54)
[2017-11-06] MEDS: Tamsulosin HCl 0.4 MG CAP PO SCH (08:20)
[2017-11-06] MEDS: Senokot S 8.6-50 MG TAB PO SCH ×3 (08:21→21:53)
[2017-11-06] MEDS: Famotidine 20 MG TAB PO SCH ×2 (08:21→21:51)
--- NOTE | 2017-11-06 09:10 | PRG ---
DATE OF SERVICE: 11/06/2017 SERVICE: Pulmonary Medicine INTERVAL HISTORY: The patient is doing fine from cardiovascular and respiratory standpoint. He kendra es any chest pain, nausea, vomiting or shortness of breath. He got cardioverted yesterday and succes sfully returned to normal sinus rhythm in which he remains. PHYSICAL EXAMINATION: VITAL SIGNS: Afebrile, pulse 80, blood pressure 117/68, respirations 17, saturation 98% on room air. GENERAL: The patient is awake, alert, in no apparent distress. LUNGS: Excellent air entry with no prolonged expiratory phase, wheezing, rhonchi or crackles. HEART: Normal rate, regular. ABDOMEN: Soft, nontender, nondistended. Bowel sounds are positive. MUSCULOSKELETAL: No cyanosis or clubbing. There is no pitting in the bilateral lower extremities. NEUROLOGIC: Grossly nonfocal. LABORATORY DATA: WBC 6.7, hemoglobin 8.9, platelets 210,000. Basic metabolic profile; magnesium an d phosphorus all within the normal limits. Urinalysis is unremarkable. ASSESSMENT: 1. Atrial flutter with variable rate, returned to sinus rhythm after cardioversion. 2. Syncope. 3. Type 2 diabetes mellitus. 4. Hematuria following recent prostatectomy. DISCUSSION AND PLAN: The patient is doing fantastic from a respiratory standpoint. He has returned to normal sinus rhythm. From my perspective, he is stable for transition out of the hospital and/or to the telemetry unit. When he goes to the floor, I will sign off. Please call with additional ques tions or concerns moving forward.
--- NOTE | 2017-11-06 11:36 | OP ---
DATE OF PROCEDURE: 11/05/2017 ELECTROPHYSIOLOGY STUDY AND RADIOFREQUENCY ABLATION REPORT REFFERING PHYSICIAN: Kevin Whitaker DO and Sanjay Morales MD REASON FOR PROCEDURE: Mr. Jean-Baptiste is a 77-year-old man with a history of melanoma; coronary artery dis ease, on medical management, preserved LV function; diabetes; hyperlipidemia; hypertension who is pre senting after a syncopal spell. He was noted to be in newly found atrial flutter and a bifascicular block present on EKG. DESCRIPTION OF PROCEDURE: The patient received deep sedation by anesthesia specialist. Prior to the EP study, a TIFFANIE demonstrated no intracardiac clots. The right femoral venous area was prepped, drap ed, and anesthetized using subcutaneous lidocaine. Under ultrasound guidance, the right femoral vein was cannulated and two 8-Prydeinig short sheaths were introduced. Through this a decapolar CS catheter was advanced to the right ventricle, right atrium, His bundle, and CS location. Pacing, mapping, an d recording were performed at each location. Following that, the patient was found to be in atrial f lutter. Overdrive pacing maneuvers were performed demonstrating shortest post-pacing interval by the coronary sinus ostium. Following that, a bidirectional SF ST irrigated-tip catheter was advanced to the right atrium. Right atrial 3D map was obtained. The cavotricuspid isthmus was clearly delineat ed and cavotricuspid ablation was performed during atrial flutter. During the ablation, the flutter terminated. Following that with proximal CS pacing, further mapping and ablation was performed to as certain block through the cavotricuspid isthmus. Eventually achieved cavotricuspid isthmus block dem onstrated by longest transisthmus time adjacent to the ablation line up to 230 milliseconds was seen. Following that, basic EP study was performed. The baseline cycle length was about 850 milliseconds. The AR is about 213 milliseconds. The QRS is 97, QT is 430 milliseconds. The HV interval was 63 mi lliseconds. The AV Wenckebach cycle length was 350 milliseconds. The VA conduction test was also pe rformed from pacing from ventricular with the ablation catheter and seen VA block at 760 milliseconds . Central retrograde VA conduction was demonstrated. The AV maribel ERP was 600/460 milliseconds. Th e burst atrial pacing after the ablation induced only very short nonsustained atypical atrial flutter only. It was . No dual AV maribel physiology was observed. CONCLUSION: 1. Typical cavotricuspid isthmus dependent atrial flutter at baseline. 2. Cavotricuspid isthmus ablation terminated the atrial flutter and achieves block through the cavot ricuspid isthmus. 3. No inducible atrial flutter or any other arrhythmia post ablation sustained. 4. Prolonged sinus node recovery time post ablation with , corrected 730 milliseconds. The pat ient has recently been on diltiazem and metoprolol. 5. Normal AV maribel and borderline His-Purkinje function is seen. 6. No evidence of inducibility is seen and no recurrence of cavotricuspid isthmus conduction after d opamine administration. PLAN: 1. Proceed with loop recorder implant to monitor for further bradyarrhythmia or tachyarrhythmia in t he future hence the history of syncopal spell. 2. History of hematuria. For now, we will hold off anticoagulation unless significant amount of atr ial fibrillation or flutter seen in the future. 3. Taper off diltiazem. Monitor for bradycardia symptoms. For now, no definite indication for perm anent pacing unless bradycardia correlating to symptoms are seen.
--- NOTE | 2017-11-06 11:42 | OP ---
DATE OF SERVICE: 11/05/2017 PROCEDURE: Loop recorder insertion. REFERRING PHYSICIAN: Dr. Morales. REASON FOR PROCEDURE: Mr. Jean-Baptiste is a 77-year-old male with prior history of hypertension and melanom a, who presented with syncopal spell. He does have a bifascicular block on his EKG and has new onset of atrial flutter. He underwent an EP study and radiofrequency ablation and admitting the atrial fl utter circuit and was found to be borderline abnormal, did not fully justify pacemaker insertio n just yet. We decided to continue monitoring with a loop recorder. Also, it would be served to assess further atrial arrhythmias. PROCEDURE IN DETAIL: The patient received deep sedation by Anesthesia specialist. After prepped and draped left precordial area after lidocaine anesthesia, incision was made with a standard LINQ impla ntation tool kit and the LINQ recorder was inserted via the standard technique. The wound was closed with Dermabond and the loop recorder is programmed to monitor arrhythmias less than 30 and over 150 beats per minute. CONCLUSION: Successful LINQ loop recorder implant.
[2017-11-06] MEDS ORDERED: Polyethylene Glycol 3350 17 GM Packet PO SCH (14:00)
[2017-11-06] MEDS ORDERED: Senokot S 8.6-50 MG TAB PO SCH (14:00)
--- NOTE | 2017-11-06 14:59 | PDOC.CTH ---
<Kaia Orr - Last Filed: 11/06/17 14:53> Cardiology Progress Note - Subjective EP progress note: Patient seen and examined. Doing well post operatively and overnight. No new cardiac complaints. No pain or bleeding at groin site or ILR site. No heart racing, palpitations, or chest pain. Denies SOB/RAY or edema. Denies stroke or stroke like symptoms. No hematuria. - Objective Vital Signs Temp Pulse Pulse Resp Pulse Ox Pulse Ox 11/06/17 12:00 98.7 F 11/06/17 11:59 87 94 L 11/06/17 08:00 98.8 F 80 13 98 11/06/17 04:00 98.8 F Weight 187 lb 6.287 oz 11/05/17 11/06/17 11/07/17 06:59 06:59 06:59 Intake Total 1882 530 480 Output Total 1275 700 400 Balance 607 -170 80 - Physical Examination General/Neuro: alert & oriented x3, NAD Neck: carotid US brisk, no JVD present Lungs: CTA, unlabored respirations Heart: PMI normal, RRR Abdomen: NT/ND, soft - Telemetry Telemetry Rhythm: NSR - Labs Result Diagrams: 11/06/17 03:50 11/06/17 03:50 Troponin/CKMB CK-MB (CK-2) 1.5 ng/mL (0-6.6) 11/02/17 22:51 Troponin I 0.042 ng/mL (< 0.028) H 11/03/17 05:35 - Assessment/Plan 1. Typical atrial flutter s/p EPS and successful CTI ablation on 11/05/17. 2. EP Study- No additional atrial arrhythmias inducible. No atrial fibrillation seen. 3. S/P Linq ILR implantation for continued monitoring for atrial arrhythmias 4. Recent hematuria while on lovenox- hold anticoagulation unless atrial arrhythmias return. Will monitor through ILR. Will discuss watchman with patient as possibility in the future. OK for DC by EP but will continue to follow while inpatient. Request follow up as outpatient in 4-6 weeks. <Sharif Evans - Last Filed: 11/06/17 16:31> Cardiology Progress Note - Objective Vital Signs Temp Pulse Pulse Resp Pulse Ox Pulse Ox 11/06/17 12:00 98.7 F 11/06/17 11:59 87 94 L 11/06/17 08:00 98.8 F 80 13 98 Weight 187 lb 6.287 oz 11/05/17 11/06/17 11/07/17 06:59 06:59 06:59 Intake Total 1882 530 480 Output Total 1275 700 400 Balance 607 -170 80 - Labs Result Diagrams: 11/06/17 03:50 11/06/17 03:50 Troponin/CKMB CK-MB (CK-2) 1.5 ng/mL (0-6.6) 11/02/17 22:51 Troponin I 0.042 ng/mL (< 0.028) H 11/03/17 05:35 Attending Addendum - Attending Addendum Date/Time: 11/06/17 1630 I personally evaluated the patient and discussed the management with Ms Orr. I agree with the History, Examination, Assessment and Plan documented above with any addition or exceptions noted below.
--- NOTE | 2017-11-06 22:33 | PDOC.PN ---
- Subjective Encounter Start Date: 11/06/17 Encounter Start Time: 11:00 Patient seen and examined. No new complaints. No overnight events - Objective Resuscitation Status: Resuscitation Status FULL:Full Resuscitation MAR Reviewed: Yes Vital Signs & Weight: Vital Signs (12 hours) Temp Pulse Pulse Resp Pulse Ox Pulse Ox 11/06/17 20:00 98.8 F 11/06/17 19:49 98.8 F 68 15 100 11/06/17 16:00 98.5 F 11/06/17 12:00 98.7 F 11/06/17 11:59 87 94 L Weight Weight 187 lb 6.287 oz Most Recent Monitor Data Heart Rate from ECG 73 NIBP 135/67 NIBP BP-Mean 75 Respiration from ECG 18 SpO2 100 I&O: 11/05/17 11/06/17 11/07/17 06:59 06:59 06:59 Intake Total 1882 530 600 Output Total 1275 700 900 Balance 607 -170 -300 Result Diagrams: 11/06/17 03:50 11/06/17 03:50 Additional Labs: Accuchecks 11/06/17 11/06/17 11/06/17 21:51 17:26 11:31 POC Glucose 181 H 118 H 163 H EKG Reviewed by me: Yes (Tele SR) Phys Exam - Physical Examination Constitutional: NAD Respiratory: no wheezing, no rhonchi Cardiovascular: RRR, no rub Gastrointestinal: soft, non-tender, positive bowel sounds Musculoskeletal: no edema Neurological: moves all 4 limbs Dx/Plan - Plan DVT proph w/SCDs IMPRESSION: 1. Typical A flutter with RVR - off Cardizem drip with oral Metoprolol - s/p Ablation 2. Gross hematuria due to anticoag - clearing 3. BPH with recent surgery - Flomax 4. HTN 5. DM2 6. HLD / Elevated troponins due to demand ischemia / CKD 2 / CAD PLAN: * s/p Ablation * Cont low dose ASA * Cont sliding scale * EP/Urology/Critical care/Cardio following * DC in AM if ok with Cardiology/EP Review of Systems - Review of Systems Respiratory: negative: Cough, Dry, Shortness of Breath, Hemoptysis, SOB with Excertion, Pleuritic Pain, Sputum, Wheezing Cardiovascular: negative: chest pain, palpitations, orthopnea, paroxysmal nocturnal dyspnea, edema, light headedness, other - Medications/Allergies Allergies/Adverse Reactions: Allergies Allergy/AdvReac Type Severity Reaction Status Date / Time Penicillins Allergy Verified 11/02/17 23:49 Medications: Current Medications Acetaminophen (Tylenol) 1,000 mg PO Q6H PRN PRN Reason: Headache/Fever or Mild Pain Acetaminophen (Tylenol) 650 mg PO Q4H PRN PRN Reason: Mild Pain 1-3 Al Hydroxide/Mg Hydroxide (Maalox) 15 ml PO Q4H PRN PRN Reason: Heartburn or Indigestion Aspirin (Aspirin Chewable) 81 mg PO DAILY [facility] Last Admin: 11/06/17 08:20 Dose: 81 mg Atorvastatin Calcium (Lipitor) 20 mg PO DAILY [facility] Last Admin: 11/06/17 08:20 Dose: 20 mg Bisacodyl (Dulcolax) 5 mg PO DAILYPRN PRN PRN Reason: CONSTIAPT Last Admin: 11/06/17 09:46 Dose: 5 mg Bisacodyl (Dulcolax) 10 mg IA DAILYPRN PRN PRN Reason: Constipation Clonidine (Catapres) 0.1 mg PO Q4H PRN PRN Reason: Systolic BP > 180 Dextrose/Water (Dextrose 50%) 25 gm SLOW IVP PRN PRN PRN Reason: Hypoglycemia Diphenhydramine HCl (Benadryl) 25 mg PO Q6H PRN PRN Reason: Itching Famotidine (Pepcid) 20 mg PO BID [facility] Last Admin: 11/06/17 21:51 Dose: 20 mg Glucagon (Glucagon) 1 mg IM PRN PRN PRN Reason: Hypoglycemia Hydralazine HCl (Apresoline) 10 mg SLOW IVP Q4H PRN PRN Reason: Systolic BP > 180 Dextrose/Water (D5w) 1,000 mls @ 0 mls/hr IV .Q0M PRN; As Directed PRN Reason: Hypoglycemia Insulin Human Lispro (Humalog) 0 units SC .MILD SLIDING SCALE PRN PRN Reason: Mild Correctional Scale Last Admin: 11/06/17 11:33 Dose: 2 unit Insulin Human Lispro (Humalog) 0 units SC .BEDTIME SLIDING SC PRN PRN Reason: Bedtime Correctional Scale Metoprolol Succinate (Toprol Xl) 50 mg PO DAILY [facility] Nitroglycerin (Nitrostat) 0.4 mg SL Q5MIN PRN PRN Reason: Chest Pain Ondansetron HCl (Zofran Odt) 4 mg PO Q6H PRN PRN Reason: Nausea/Vomiting Ondansetron HCl (Zofran) 4 mg IVP Q6H PRN PRN Reason: Nausea/Vomiting Polyethylene Glycol (Miralax) 17 gm PO DAILY PRN PRN Reason: Constipation Polyethylene Glycol (Miralax) 17 gm PO DAILY [facility] Senna/Docusate Sodium (Senokot S) 1 tab PO BID [facility] Last Admin: 11/06/17 21:53 Dose: Not Given Silver Sulfadiazine (Silvadene) 0 gm TOP Q12H PRN PRN Reason: Rash/Topical Irritation Sodium Chloride (Flush - Normal Saline) 10 ml IVF Q12HR [facility] Last Admin: 11/06/17 21:53 Dose: 10 ml Sodium Chloride (Flush - Normal Saline) 10 ml IVF PRN PRN PRN Reason: Saline Flush Tamsulosin HCl (Flomax) 0.4 mg PO DAILY [facility] Last Admin: 11/06/17 08:20 Dose: 0.4 mg Temazepam (Restoril) 15 mg PO HSPRN PRN PRN Reason: Insomnia Tramadol HCl (Ultram) 50 mg PO Q4H PRN PRN Reason: FOR MODERATE PAIN 4-6
[2017-11-07 00:51] VITALS: TEMP 98.7
[2017-11-07 05:35] LABS: Hemoglobin 8.8 g/dL (14.0-18.0); Platelet Count 197 thou/uL (130-400)
[2017-11-07] MEDS: HumaLOG 300 UNITS/3 ML VIAL SC PRN (05:44)
[2017-11-07] MEDS: Tamsulosin HCl 0.4 MG CAP PO SCH (08:56)
[2017-11-07] MEDS: Famotidine 20 MG TAB PO SCH (08:56)
[2017-11-07] MEDS: Senokot S 8.6-50 MG TAB PO SCH (08:56)
[2017-11-07] MEDS: Atorvastatin Calcium 20 MG TAB PO SCH (08:56)
[2017-11-07] MEDS ORDERED: Polyethylene Glycol 3350 17 GM Packet PO SCH (09:00)
[2017-11-07] MEDS ORDERED: Ramipril 5 MG CAP PO SCH (09:00)
--- NOTE | 2017-11-07 09:37 | PRG ---
DATE OF SERVICE: 11/07/2017 REFERRING PHYSICIAN: Dr. Morales. SUBJECTIVE: Mr. Jean-Baptiste seems to be doing well. He is still in the ICU, but overall stable. No new i ssues noted. OBJECTIVE: VITAL SIGNS: Blood pressure is 148/72, heart rate 83, respiration rate 18, temperature 98.7 degrees Fahrenheit. GENERAL: This is an alert and oriented man, in no apparent distress. NECK: Supple. Jugular veins not distended. CHEST: Coarse, no crackles. CARDIOVASCULAR: Heart sounds are regular to rate and rhythm. No murmur or gallop. ABDOMEN: Benign. Bowel sounds are positive. EXTREMITIES: Lower extremities without edema, clubbing or cyanosis. DATABASE: The telemetry strips revealed sinus rhythm with frequent PVCs, occasional couplets are see n as well. ASSESSMENT AND PLAN: Mr. Jean-Baptiste is a very pleasant 77-year-old man who presented with typically appea ring atrial flutter with rapid ventricular rates. Eventually underwent TIFFANIE guided ablation terminati ng the atrial flutter and achieving CTI block. Due to the gross hematuria on anticoagulation, for now he is off anticoagulants and only an aspirin, hence the TIFFANIE also showed no clots. Also, has the history of syncope on initial presentation, underw ent a loop recorder implant for further monitoring especially in view of his bifascicular block and s inus node disease as well. Follow up is requested in 6 weeks for further management of his potential need for anticoagulation wi th history of atrial fibrillation or flutter recur. 1. Anemia, currently stable, 8.9-8.8. Recent TURP, monitor hematuria with Nephrology.
--- NOTE | 2017-11-07 09:47 | PRG ---
DATE OF SERVICE: 11/07/2017 SERVICE: Pulmonary Medicine. INTERVAL HISTORY: The patient is doing fine from a respiratory standpoint. He denies any chest pain , shortness of breath, nausea or vomiting. Otherwise, he is returning to his usual state of health. He had no significant events on pvc monitor. PHYSICAL EXAMINATION: VITAL SIGNS: Afebrile, pulse 83, blood pressure 126/74, respirations 18, saturation 98% on room air. GENERAL: Patient is awake, alert, in no apparent distress. LUNGS: Decent air entry with no prolonged expiratory phase, wheezing, rhonchi or crackles. HEART: Normal rate and regular. ABDOMEN: Soft, nontender, and nondistended. Bowel sounds are positive. MUSCULOSKELETAL: No cyanosis or clubbing. No pitting in the bilateral lower extremities. NEUROLOGIC: Grossly nonfocal. LABORATORY DATA: Hemoglobin 8.8. Blood sugars ranged from 118-181. ASSESSMENT: 1. Atrial flutter with variable rate, returned to sinus rhythm following cardioversion. 2. Syncope. 3. Type 2 diabetes mellitus. 4. Hematuria after recent prostatectomy. PLAN: The patient is stable for transition out of the hospital. Pulmonary or Critical Care will con tinue to follow if he remains inhouse in the ICU. When he leaves this location, Pulmonary will sign off. Please call with additional questions or concerns.
[2017-11-07 11:38] VITALS: BP 158/81
--- NOTE | 2017-11-07 15:27 | DIS ---
DATE OF ADMISSION: 11/03/2017 DATE OF DISCHARGE: 11/07/2017 PRIMARY CARE PHYSICIAN: Edison Richards, Dr. Tejas Prieto. DISCHARGE DIAGNOSES: 1. Atrial flutter with variable rate, status post ablation. 2. Syncope secondary to #1. 3. Type 2 diabetes mellitus. 4. Hematuria after recent prostatectomy with stable hemoglobin and hematocrit. 5. Chronic anemia. 6. Hypertension. DISCHARGE MEDICATIONS: Are as follows; Novolin 70/30, 20 units in the evening and 25 units in the mo rning, metformin 1000 mg p.o. b.i.d., allopurinol 100 mg p.o. b.i.d., hydrochlorothiazide 25 mg daily , Lipitor 20 mg daily, Flomax 0.4 mg daily, ramipril 5 mg daily, metoprolol succinate 50 mg daily, an d aspirin 81 mg daily. CONSULTATIONS INHOUSE: Include, 1. Cardiology, Dr. Morales. 2. Electrophysiology, Dr. Evans. 3. Pulmonary Medicine, Dr. Quintanilla. PROCEDURES DONE IN THE HOSPITAL: 1. Transthoracic echocardiogram, which shows ejection fraction of 55%-60% with moderate concentric l eft ventricular hypertrophy. 2. Loop recorder insertion by Dr. Evans on 11/05/2017. 3. Electrophysiology study and radiofrequency ablation of atrial flutter on 11/05/2017. HISTORY OF PRESENTING ILLNESS: Mr. Jean-Baptiste is a pleasant 77-year-old male with past medical history of hypertension, diabetes, coronary artery disease, and chronic anemia who presented to the emergency r o with complaints of chest pain for the last 48 hours. The chest pain made him to pass out. He wa s admitted to [facility], was checked out from there AMA as he did not see a kitchen porter du ring that stay. He apparently underwent a cardiac stress testing and echo over there however. Upon presentation to our facility, he underwent a general evaluation and his EKG showed atrial flutter wit h rapid ventricular response and variable AV block and heart rate in the 110s-120s. There was also a possibility of urinary tract infection. He was given IV esmolol, IV levofloxacin and IV fluids and was admitted to Critical Care Unit for further evaluation. Please see admission history and physical for further detail. The patient was started on therapeutic Lovenox as well as Cardizem drip and Car diology was consulted. He was found to have elevated troponin ranging from 0.036-0.058 at the time o f presentation also. His hemoglobin was 11. HOSPITAL COURSE: The patient was seen by Pulmonary Medicine while he was in the Critical Care Unit. Dr. Quintanilla saw the patient and followed him along. Cardiology also saw the patient and recommended EP study and Dr. Evans was consulted. [facility] He was discontinued from Lovenox as his TIFFANIE did not show any clots and he was having hematuria given his recent TURP for BPH. His hemoglobin and hematocrit was followed and it was stable. Eventually, it was decided that he would only continue on aspirin for anticoagulation. He was rate controlled wi metoprolol and the dose was adjusted by Dr. Morales from Cardiology. He remained in sinus rhythm by the time of discharge. As of this morning, he has been cleared by both Dr. Evans and Dwight for discharge and is eager to go home. Home health was made available to him, but he declined. Discharge plan was discussed with e patient and his daughter present in the room and they verbalized understanding. He was seen and examined prior to discharge. PHYSICAL EXAMINATION: VITAL SIGNS: This morning include temperature 98.7, heart rate 83, saturating 98% on room air, blood pressure of 158/81 and then 126/74. GENERAL: No acute distress, awake, alert, oriented x3. CHEST: Clear to auscultation. Rate and rhythm is regular. LABORATORY DATA: Hemoglobin 8.8 with hematocrit 27.4. Serum chemistry shows blood sugar of 159, oth erwise unremarkable. His urine culture was not sent. DISCHARGE INSTRUCTIONS: He is instructed to follow up with his primary care physician in 5-7 days as well as with Cardiology and Electrophysiology in the outpatient setting. New prescriptions were pro vided to the patient. Total time spent in the discharge of this patient 32 minutes.
--- NOTE | 2017-11-10 20:24 | EKG ---
Test Reason : Blood Pressure : / mmHG Vent. Rate : 116 BPM Atrial Rate : 232 BPM P-R Int : 000 ms QRS Dur : 138 ms QT Int : 354 ms P-R-T Axes : 000 -36 163 degrees QTc Int : 492 ms Atrial flutter with variable A-V block Left axis deviation Right bundle branch block Left ventricular hypertrophy with repolarization abnormality Abnormal ECG Confirmed by THOMAS GRISSOM ([id number]), greeting card editor ROSA BLACKWELL ([id number]) on 11/10/2017 8:23:24 PM Referred By: Confirmed By:THOMAS GRISSOM
== END 2017-11-07 11:58 | disposition home or self-care (01) | DRG 274 ==
LOC: ERS 22:20 → CCU 11-03 00:58
PROVIDERS: ADMIT Family Medicine; ATTEND Family Medicine
PROC: 02583ZZ Destruction of Conduction Mechanism, Percutaneous Approach (ICD-10-PCS; principal; 2017-11-05)
PROC: 02K83ZZ Map Conduction Mechanism, Percutaneous Approach (ICD-10-PCS; 2017-11-05)
PROC: 0JH602Z Insertion of Monitoring Device into Chest Subcutaneous Tissue and Fascia, Open Approach (ICD-10-PCS; 2017-11-06)
PROC: 4A023FZ Measurement of Cardiac Rhythm, Percutaneous Approach (ICD-10-PCS; 2017-11-06)
PROC: 4A0234Z Measurement of Cardiac Electrical Activity, Percutaneous Approach (ICD-10-PCS; 2017-11-06)
DX: I48.3 Typical atrial flutter (principal); D68.32 Hemorrhagic disorder due to extrinsic circulating anticoagulants; E11.22 Type 2 diabetes mellitus with diabetic chronic kidney disease; I24.8 Other forms of acute ischemic heart disease; N39.0 Urinary tract infection, site not specified; I45.2 Bifascicular block; E78.5 Hyperlipidemia, unspecified; I25.10 Atherosclerotic heart disease of native coronary artery without angina pectoris; Z85.820 Personal history of malignant melanoma of skin; N40.0 Benign prostatic hyperplasia without lower urinary tract symptoms; R31.0 Gross hematuria; I48.91 Unspecified atrial fibrillation; D63.1 Anemia in chronic kidney disease; Z87.891 Personal history of nicotine dependence; E66.9 Obesity, unspecified; I12.9 Hypertensive chronic kidney disease with stage 1 through stage 4 chronic kidney disease, or unspecified chronic kidney disease; N18.2 Chronic kidney disease, stage 2 (mild); Z79.4 Long term (current) use of insulin; Z68.26 Body mass index [BMI] 26.0-26.9, adult
CPT/HCPCS: 33282; 36415; 36416; 71045; 76942; 80048; 80053; 80069; 81003; 81015; 82553; 83690; 83735; 83880; 84443; 84484; 85007; 85014; 85018; 85025; 85027; 85049; 85379; 85610; 85730; 93005; 93010; 93306; 93312; 93613; 93623; 93653; 96361; 96365; 96366; 96376; A4216; C1730; C1764; C1769; G8978-GP-CJ; G8979-GP-CH; J1265; J1644; J1650; J1956; J2001; J2250; J2704; J3010; J7050

== ENCOUNTER 2018-04-30 06:16 | Day surgery (SDC) | payer MEDICARE ==
[2018-04-29 13:26] VITALS: BMI 27.7
[2018-04-30] MEDS ORDERED: Propofol 1,000 MG/100 ML VIAL IV ONE (07:20)
[2018-04-30] MEDS ORDERED: PROPOFOL 200 MG/20 ML VIAL ONE (15:04)
--- NOTE | 2018-04-30 15:39 | EKG ---
Test Reason : PREOP TIFFANIE Blood Pressure : / mmHG Vent. Rate : 069 BPM Atrial Rate : 069 BPM P-R Int : 234 ms QRS Dur : 148 ms QT Int : 420 ms P-R-T Axes : 071 -34 133 degrees QTc Int : 450 ms Sinus rhythm with 1st degree A-V block with occasional Premature ventricular complexes and Premature atrial complexes Left axis deviation Right bundle branch block Left ventricular hypertrophy with repolarization abnormality Abnormal ECG When compared with ECG of 05-APR-2018 14:17, (Unconfirmed) Premature ventricular complexes are now Present Confirmed by DR. Mars DANGELO MD ([id number]) on 04/30/2018 3:39:06 PM Referred By: PIETRO Confirmed By:DR. Mars DANGELO MD
--- NOTE | 2018-04-30 19:47 | ECHO ---
INDICATION: 77-year-old gentleman with paroxysmal atrial fibrillation. DESCRIPTION OF PROCEDURE: The patient was taken to the PACU, the patient was sedated by Anesthesiology. A transesophageal prob e was placed into the distal esophagus and stomach. Echocardiographic images were obtained. Transes ophageal probe was removed. FINDINGS: 1. Normal left ventricular systolic function. 2. Left atrial enlargement. 3. Mild mitral regurgitation. 4. Mild tricuspid regurgitation. 5. Trivial aortic regurgitation. 6. Watchman device was well positioned in the left atrial appendage with clot behind the device. 7. Atherosclerotic debris in the descending aorta. IMPRESSION: Watchman well positioned with no significant leak noted. CC: Dr. Ortiz
== END 2018-04-30 10:00 | disposition home or self-care (01) ==
LOC: CCL 06:16
PROVIDERS: ATTEND Internal Medicine Cardiovascular Disease
PROC: B24BZZ4 Ultrasonography of Heart with Aorta, Transesophageal (ICD-10-PCS; principal; 2018-04-30)
DX: I48.0 Paroxysmal atrial fibrillation (principal); I08.1 Rheumatic disorders of both mitral and tricuspid valves; I70.0 Atherosclerosis of aorta; Z79.4 Long term (current) use of insulin; Z79.82 Long term (current) use of aspirin; Z79.899 Other long term (current) drug therapy; Z88.0 Allergy status to penicillin; Z95.818 Presence of other cardiac implants and grafts
CPT/HCPCS: 93005; 93010; 93312; J2704

== ENCOUNTER 2018-05-08 14:16 | Emergency (ER) | payer MEDICARE ==
--- NOTE | 2018-05-08 15:23 | CT ---
CT BRAIN WITHOUT CONTRAST: History: Injury. Fell on left side and hit head, without loss of consciousness. Left sided head pain. FINDINGS: No evidence of acute hemorrhage, midline shift, or abnormal extraaxial fluid collections are seen. Th e ventricular size is appropriate and the basilar cisterns patent. The bony calvarium is intact. The visualized paranasal sinuses and mastoid air cells are well aerated. There is a small focal area of s oft tissue swelling seen in the left posteroparietal scalp. IMPRESSION: No CT evidence of acute intracranial process. POS: [facility]
[2018-05-08] MEDS ORDERED: HYDROcodone/Acetaminophen 5/325 mg Tablet ONE (15:29)
--- NOTE | 2018-05-08 16:10 | RAD ---
PA CHEST AND LEFT RIB SERIES: Date: 05/08/18 HISTORY: Injury, left chest pain. FINDINGS: There are multiple fractures involving the left 6th, 7th, 8th, and 9th ribs. The heart size is enlarg ed. No pneumothoraces, focal areas of consolidation, or large effusions are seen. There are surgical clips in the axilla bilaterally. IMPRESSION: Multiple left rib fractures without pneumothorax. POS: [facility]
--- NOTE | 2018-05-11 13:25 | EKG ---
Test Reason : ER Blood Pressure : / mmHG Vent. Rate : 095 BPM Atrial Rate : 300 BPM P-R Int : 000 ms QRS Dur : 138 ms QT Int : 382 ms P-R-T Axes : 000 -37 147 degrees QTc Int : 480 ms Atrial fibrillation with premature ventricular or aberrantly conducted complexes Left axis deviation Right bundle branch block Voltage criteria for left ventricular hypertrophy T wave abnormality, consider lateral ischemia Abnormal ECG Confirmed by LEYDI RODRIGUEZ ([id number]), commercial production editor ROSA BLACKWELL ([id number]) on 05/11/2018 1:24:30 PM Referred By: Confirmed By:LEYDI RODRIGUEZ
== END 2018-05-08 16:52 | disposition home or self-care (01) ==
LOC: ERS 14:16
DX: S22.42XA Multiple fractures of ribs, left side, initial encounter for closed fracture (principal); E11.9 Type 2 diabetes mellitus without complications; D64.9 Anemia, unspecified; I48.91 Unspecified atrial fibrillation; Z79.82 Long term (current) use of aspirin; Z79.4 Long term (current) use of insulin; W18.30XA Fall on same level, unspecified, initial encounter
CPT/HCPCS: 70450; 93005

== ENCOUNTER 2018-10-17 08:43 | Outpatient (CLI) | payer MEDICARE ==
--- NOTE | 2018-10-17 10:32 | CT ---
CT OF CHEST AND ABDOMEN AND PELVIS PERFORMED WITH ITNRAVENOUS CONTRAST ENHANCEMENT: HISTORY: Malignant neoplasm of cecum. Also a history of melanoma. Colon lesion removed in 2018. COMPARISON: 04/12/2018 CT of the chest and a CT of the abdomen and the pelvis performed 04/08/2018. FINDINGS: The lungs are clear of any infiltrative process. There are no pulmonary nodules identified. No evid ence of any pleural effusions. No significant mediastinal or hilar adenopathy. There are surgical clips seen in the axillary region bilaterally. There is an atrial appendage occlusion-type device present. There is some contrast se en distal to the occlusion device. There are prominent coronary artery calcifications seen. CT OF ABDOMEN PERFORMED WITH CONTRAST: The left lobe hepatic cyst is again seen and unchanged. The spleen and pancreas regions appear unrem arkable. There is some density in the gallbladder neck which appears to represent a gallstone. Right and left adrenal glands and right and left kidneys are normal in size. Slightly prominent righ t extrarenal pelvis is a stable finding. There is no significant periaortic adenopathy. There is no significant mesenteric adenopathy seen. There is right hemicolectomy change. There is some moderat e colonic diverticulosis noted. CT OF PELVIS PERFORMED WITH COTNRAST ENHANCEMENT: Pronounced sigmoid diverticulosis is seen. No pelvic lymphadenopathy or mass. Review of osseous structures shows multiple healed left rib fractures which are new as compared to th e prior exam. These appear to be more posttraumatic in nature. There are arthritic changes of the s pine and hips. IMPRESSION: 1. Right hemicolectomy changes. No evidence for metastatic disease. 2. Chronic-appearing lung changes with old left rib fractures. 3. Surgical clips in the axillary region. 4. Marked coronary artery calcifications. 5. Probable gallstone. 6. Stable left lobe hepatic cyst. 7. Severe colonic diverticulosis. POS: [facility]
[2018-10-17] MEDS ORDERED: Iopamidol 370 76% 100 ML VIAL ONE (12:02)
== END 2018-10-17 08:44 | disposition home or self-care (01) ==
LOC: BICCT 08:43
PROVIDERS: ATTEND Internal Medicine Hematology & Oncology
DX: C43.62 Malignant melanoma of left upper limb, including shoulder (principal); C18.0 Malignant neoplasm of cecum; C61 Malignant neoplasm of prostate; I25.10 Atherosclerotic heart disease of native coronary artery without angina pectoris; K76.89 Other specified diseases of liver; K57.30 Diverticulosis of large intestine without perforation or abscess without bleeding; Z87.81 Personal history of (healed) traumatic fracture
CPT/HCPCS: 71260; 74177; 82565; Q9967

== ENCOUNTER 2019-10-14 08:15 | Outpatient (CLI) | payer MEDICARE ==
[2019-10-14 08:56] LABS: Hemoglobin 13.9 g/dL (14.0-18.0); Mean Corpuscular HGB CONC 34.2 g/dL (32.0-36.0); Mean Corpuscular Volume 96.4 fL (78.0-98.0); Mean Platelet Volume 7.3 fL (7.4-10.4); Platelet Count 179 thou/uL (130-400); RBC Distribution Width 12.6 % (11.5-14.5); Red Blood Cell (RBC) Count 4.21 mill/uL (4.70-6.10); White Blood Cell (WBC) Count 7.2 thou/uL (4.8-10.8)
[2019-10-14 09:15] LABS: ALT (SGPT) 14 U/L (8-55); AST (SGOT) 16 U/L (5-34); Albumin 4.4 g/dL (3.4-4.8); Alkaline Phosphatase 95 U/L (40-110); Anion Gap 14 mmol/L (10-20); BUN (Urea Nitrogen) 10 mg/dL (8.4-25.7); Bilirubin, Total 0.8 mg/dL (0.2-1.2); Calc. Creatinine Clearance 0 mL/min (70-130); Calcium 9.5 mg/dL (7.8-10.44); Carbon Dioxide 29 mmol/L (23-31); Chloride 102 mmol/L (98-107); Estimated GFR-MDRD 60; Glucose 152 mg/dL (83-110); Potassium 4.6 mmol/L (3.5-5.1); Protein, Total 7.4 g/dL (5.8-8.1); Sodium 140 mmol/L (136-145)
--- NOTE | 2019-10-14 10:45 | CT ---
CT chest with IV contrast CT abdomen and pelvis with IV and oral contrast HISTORY: Malignant neoplasm of the cecum. Restaging. COMPARISON: 10/17/2018. FINDINGS: Lungs are well-inflated. Parenchymal scarring and old rib fractures at the left posterolate ral chest similar in appearance to the prior study. The tiny hazy subpleural nodule within the Anterior aspect of the right middle lobe is unchanged in appearance. Metallic clips at each axilla. No pleural fluid or mediastinal adenopathy. Prominent calcification th roughout the coronary arteries. Hyperdense stones in the dependent portion of the gallbladder lumen. The 2.6 cm cyst within the later al segment left liver lobe is stable. Diverticulum arising from the second portion of the duodenum similar in appearance to the prior study. Left para-aortic lymph node at the level of the mid kidneys, 1.1 cm greatest diameter, is stable. Surgical changes of right hemicolectomy again demonstrated. Diverticula arise from the colon without adjacent inflammation. Prominent degenerative changes of the lumbar spine. Central canal and foraminal stenoses appear to be most severe at the L2-3 level. IMPRESSION: No evidence of recurrent disease. Postoperative changes of the chest and abdomen are stab le. Cholelithiasis. Diverticulosis. No evidence of diverticulitis. Atherosclerosis coronary arteries.
[2019-10-14] MEDS ORDERED: Iopamidol 370 76% 100 ML VIAL ONE (14:29)
== END 2019-10-14 08:16 | disposition home or self-care (01) ==
LOC: CT 08:15
PROVIDERS: ATTEND Internal Medicine Hematology & Oncology
DX: C18.9 Malignant neoplasm of colon, unspecified (principal); C18.0 Malignant neoplasm of cecum; C43.62 Malignant melanoma of left upper limb, including shoulder; C61 Malignant neoplasm of prostate; K80.20 Calculus of gallbladder without cholecystitis without obstruction; I25.10 Atherosclerotic heart disease of native coronary artery without angina pectoris; K57.30 Diverticulosis of large intestine without perforation or abscess without bleeding; Z98.890 Other specified postprocedural states
CPT/HCPCS: 71260; 74177; 80053; 82378; 85027; Q9967

== ENCOUNTER 2020-01-30 10:02 | Emergency (ER) | payer MEDICARE ==
[2020-01-30 10:48] LABS: Bilirubin Negative (Negative); Blood, Urine 2+ (Negative); Clarity Turbid (Clear); Glucose, Urine (Dipstick) Normal (Negative); Leukocyte 500 Leu/uL (Negative); Nitrite Negative (Negative); Protein, Urine (Dipstick) 30 mg/dL (Neg-Trace); RBC/HPF Greater than 50 HPF (0-3); Squamous Epithelial None Seen HPF (0-3); Urobilinogen Normal mg/dL (Less than 2); WBC/HPF Greater than 50 HPF (0-3)
[2020-01-30 10:55] LABS: Bacteria/HPF Rare-Few HPF (None Seen)
[2020-01-30 11:24] LABS: #Eosinphils 0.5 thou/uL (0.0-0.7); #Lymphocytes 1.9 thou/uL (1.20-3.40); #Monocytes 0.7 thou/uL (0.11-0.59); #Neutrophils 8.7 thou/uL (1.40-6.50); %Basophils 0.4 % (0.0-1.0); %Eosinophils 3.8 % (0.0-10.0); %Lymphocytes 16.4 % (21.0-51.0); %Monocytes 6.1 % (0.0-10.0); %Neutrophils 73.3 % (42.0-75.0); Hemoglobin 15.2 g/dL (14.0-18.0); Mean Corpuscular HGB CONC 33.7 g/dL (32.0-36.0); Mean Corpuscular Hemoglobin 32.7 pg (27.0-31.0); Mean Platelet Volume 7.3 fL (7.4-10.4); Platelet Count 207 thou/uL (130-400); RBC Distribution Width 12.5 % (11.5-14.5); Red Blood Cell (RBC) Count 4.66 mill/uL (4.70-6.10); White Blood Cell (WBC) Count 11.8 thou/uL (4.8-10.8)
[2020-01-30 11:29] LABS: PTT 23.7 sec (22.9-36.1); Prothrombin Time 12.8 sec (12.0-14.7)
[2020-01-30 11:49] LABS: ALT (SGPT) 16 U/L (8-55); AST (SGOT) 16 U/L (5-34); Albumin 4.7 g/dL (3.4-4.8); Alkaline Phosphatase 131 U/L (40-110); Anion Gap 14 mmol/L (10-20); BUN (Urea Nitrogen) 11 mg/dL (8.4-25.7); Bilirubin, Total 0.8 mg/dL (0.2-1.2); Calc. Creatinine Clearance 0 mL/min (70-130); Calcium 10.1 mg/dL (7.8-10.44); Carbon Dioxide 29 mmol/L (23-31); Chloride 98 mmol/L (98-107); Estimated GFR-MDRD 70; Globulin 3.9 g/dL (2.4-3.5); Glucose 115 mg/dL (83-110); Protein, Total 8.6 g/dL (5.8-8.1); Sodium 137 mmol/L (136-145)
[2020-01-30] MEDS ORDERED: cefTRIAXone\\ROCEPHIN 2 GM VIAL ONE (12:34)
--- NOTE | 2020-01-30 13:46 | CT ---
CT ABDOMEN AND PELVIS WITHOUT CONTRAST USING STONE PROTOCOL: 01/30/20 HISTORY: Hematuria. Prostate cancer, colon cancer, diabetes. COMPARISON: Contrast enhanced CT scan of 10/14/19. FINDINGS: The lung bases are unremarkable. Old left sided rib fractures are again seen. The 2.6 cm cyst in the left lobe of the liver is stable. Calcified gallstone is again seen. There are tiny calcified granulo mas in the liver and spleen. No free air, free fluid is noted in the abdomen or pelvis. No calculi is seen in the kidneys, ureters, or the urinary bladder. No hydroureteronephrosis seen on either side. The small bowel loops are not abnormally dilated. There is fecal material in the colon. There is colo marko diverticulosis. There are vascular calcifications without evidence of aneurysmal dilatation of the abdominal aorta. T here are degenerative changes in the spine. IMPRESSION: 1. No CT evidence of urinary tract calculi or obstruction. 2. Left liver lobe cyst. 3. Cholelithiasis. 4. Colonic diverticulosis. POS: [facility]
== END 2020-01-30 12:24 | disposition home or self-care (01) ==
LOC: ERS 10:02
DX: N30.01 Acute cystitis with hematuria (principal); D64.9 Anemia, unspecified; I48.91 Unspecified atrial fibrillation; Z79.4 Long term (current) use of insulin; Z79.82 Long term (current) use of aspirin; Z79.02 Long term (current) use of antithrombotics/antiplatelets; Z79.899 Other long term (current) drug therapy
CPT/HCPCS: 36415; 74176; 80053; 81003; 81015; 83605; 85025; 85610; 85730; 87077; 87086; 87186; 96365; J0696

== ENCOUNTER 2020-10-18 08:07 | Outpatient (CLI) | payer MEDICARE ==
[2020-10-18] MEDS ORDERED: Iopamidol 370 76% 100 ML VIAL ONE (13:18)
== END 2020-10-18 08:08 | disposition home or self-care (01) ==
LOC: CT 08:07
PROVIDERS: ATTEND Internal Medicine Hematology & Oncology
DX: C18.0 Malignant neoplasm of cecum (principal); C61 Malignant neoplasm of prostate; C43.62 Malignant melanoma of left upper limb, including shoulder; K57.30 Diverticulosis of large intestine without perforation or abscess without bleeding; K76.9 Liver disease, unspecified; I25.10 Atherosclerotic heart disease of native coronary artery without angina pectoris; K44.9 Diaphragmatic hernia without obstruction or gangrene; Z98.890 Other specified postprocedural states
CPT/HCPCS: 71260; 74177; Q9967

== ENCOUNTER 2020-12-24 09:47 | Outpatient (CLI) | payer MEDICARE ==
[2020-12-24 11:23] LABS: Hemoglobin 13.8 g/dL (13.5-17.5); Mean Corpuscular HGB CONC 33.5 g/dL (32.0-36.0); Mean Corpuscular Hemoglobin 31.2 pg (27.0-33.0); Platelet Count 265 10x3/uL (150-450); RBC Distribution Width 13.6 % (11.5-14.5); Red Blood Cell (RBC) Count 4.43 10x6/uL (4.32-5.72); White Blood Cell (WBC) Count 10.1 10x3/uL (3.5-10.5)
[2020-12-24 11:47] LABS: Anion Gap 17 mmol/L (10-20); BUN (Urea Nitrogen) 22 mg/dL (8.4-25.7); Calc. Creatinine Clearance 0 mL/min (70-130); Calcium 9.8 mg/dL (7.8-10.44); Carbon Dioxide 23 mmol/L (23-31); Chloride 98 mmol/L (98-107); Glucose 156 mg/dL (83-110); Potassium 4.4 mmol/L (3.5-5.1); Sodium 134 mmol/L (136-145)
[2020-12-24 11:53] LABS: INR-International Normal Ratio 1.2; PTT 29.5 sec (22.0-33.0); Prothrombin Time 12.8 sec (9.5-12.1)
[2020-12-24 17:56] LABS: SARS-CoV-2 PCR by NAA Not Detected (NotDetected)
== END 2020-12-24 09:48 | disposition home or self-care (01) ==
LOC: LABBT 09:47
PROVIDERS: ATTEND Internal Medicine Cardiovascular Disease
DX: Z01.818 Encounter for other preprocedural examination (principal); I48.91 Unspecified atrial fibrillation; Z20.822 Contact with and (suspected) exposure to COVID-19
CPT/HCPCS: 80048; 85027; 85610; 85730; U0003; U0005; 87635

== ENCOUNTER 2020-12-29 06:28 | Day surgery (SDC) | payer MEDICARE ==
[2020-12-27 15:28] VITALS: BMI 24.8
[2020-12-29] MEDS ORDERED: Lidocaine 1% PF 5 ML VIAL ONE (10:12)
[2020-12-29] MEDS ORDERED: PROPOFOL 200 MG/20 ML VIAL ONE (10:12)
== END 2020-12-29 11:53 | disposition home or self-care (01) ==
LOC: CCL 06:28
PROVIDERS: ATTEND Internal Medicine Cardiovascular Disease
PROC: 5A2204Z Restoration of Cardiac Rhythm, Single (ICD-10-PCS; principal; 2020-12-29)
DX: I48.19 Other persistent atrial fibrillation (principal); I48.92 Unspecified atrial flutter; I44.0 Atrioventricular block, first degree; I25.10 Atherosclerotic heart disease of native coronary artery without angina pectoris; E11.9 Type 2 diabetes mellitus without complications; M10.9 Gout, unspecified; I10 Essential (primary) hypertension; E78.5 Hyperlipidemia, unspecified; Z85.46 Personal history of malignant neoplasm of prostate; Z79.01 Long term (current) use of anticoagulants; Z79.4 Long term (current) use of insulin; Z79.82 Long term (current) use of aspirin; Z79.899 Other long term (current) drug therapy; Z88.0 Allergy status to penicillin; Z95.818 Presence of other cardiac implants and grafts
CPT/HCPCS: 92960; 93005; 93010; J2704

== ENCOUNTER 2021-08-17 12:41 | Outpatient (CLI) | payer MEDICARE ==
[2021-08-17 13:49] LABS: Hemoglobin 13.2 g/dL (13.5-17.5); Mean Corpuscular HGB CONC 33.1 g/dL (32.0-36.0); Mean Corpuscular Hemoglobin 31.9 pg (27.0-33.0); Mean Corpuscular Volume 96.4 fl (81.2-95.1); Mean Platelet Volume 9.7 fl (7.4-10.4); Platelet Count 228 10x3/uL (150-450); RBC Distribution Width 13.3 % (11.5-14.5); Red Blood Cell (RBC) Count 4.14 10x6/uL (4.32-5.72); White Blood Cell (WBC) Count 9.5 10x3/uL (3.5-10.5)
[2021-08-17 13:58] LABS: PTT 25.2 sec (22.0-33.0); Prothrombin Time 10.9 sec (9.5-12.1)
[2021-08-17 14:13] LABS: Anion Gap 17 mmol/L (10-20); BUN (Urea Nitrogen) 17 mg/dL (8.4-25.7); Calc. Creatinine Clearance 0 mL/min (70-130); Calcium 9.5 mg/dL (7.8-10.44); Carbon Dioxide 26 mmol/L (23-31); Chloride 100 mmol/L (98-107); Glucose 139 mg/dL (83-110); Potassium 4.5 mmol/L (3.5-5.1); Sodium 138 mmol/L (136-145)
[2021-08-18 13:39] LABS: SARS-CoV-2 PCR by NAA Not Detected (NotDetected)
== END 2021-08-17 12:42 | disposition home or self-care (01) ==
LOC: LABBT 12:41
PROVIDERS: ATTEND Internal Medicine Cardiovascular Disease
DX: Z01.812 Encounter for preprocedural laboratory examination (principal); Z51.81 Encounter for therapeutic drug level monitoring; I48.91 Unspecified atrial fibrillation; I48.92 Unspecified atrial flutter; I51.9 Heart disease, unspecified; Z79.01 Long term (current) use of anticoagulants; Z20.822 Contact with and (suspected) exposure to COVID-19
CPT/HCPCS: 80048; 85027; 85610; 85730; U0003; U0005

== ENCOUNTER 2021-08-22 11:28 | Day surgery (SDC) | payer MEDICARE ==
[2021-08-16 14:37] VITALS: BMI 28.8
[2021-08-22] MEDS ORDERED: Lidocaine 1% w/Epinephrine 1:100K 20 ML VIAL ONE (13:22)
== END 2021-08-22 16:18 | disposition home or self-care (01) ==
LOC: SDC 11:28
PROVIDERS: ATTEND Internal Medicine Cardiovascular Disease
PROC: 0JPT32Z Removal of Monitoring Device from Trunk Subcutaneous Tissue and Fascia, Percutaneous Approach (ICD-10-PCS; principal; 2021-08-22)
DX: Z45.09 Encounter for adjustment and management of other cardiac device (principal); I48.0 Paroxysmal atrial fibrillation; I48.92 Unspecified atrial flutter; I45.3 Trifascicular block; I25.10 Atherosclerotic heart disease of native coronary artery without angina pectoris; I08.1 Rheumatic disorders of both mitral and tricuspid valves; Z79.4 Long term (current) use of insulin; Z79.82 Long term (current) use of aspirin; Z79.84 Long term (current) use of oral hypoglycemic drugs; Z79.899 Other long term (current) drug therapy; Z88.0 Allergy status to penicillin; Z95.818 Presence of other cardiac implants and grafts
CPT/HCPCS: 33286

== ENCOUNTER 2021-09-13 14:00 | Inpatient (IN) | payer MEDICARE ==
[2021-09-13 14:35] LABS: #Basophils 0.1 thou/uL (0.0-0.2); #Eosinphils 0.7 thou/uL (0.0-0.7); #Lymphocytes 3.2 thou/uL (1.20-3.40); #Monocytes 0.8 thou/uL (0.11-0.59); #Neutrophils 7.9 thou/uL (1.40-6.50); %Basophils 0.8 % (0.0-1.0); %Eosinophils 5.8 % (0.0-10.0); %Lymphocytes 24.9 % (21.0-51.0); %Neutrophils 62.6 % (42.0-75.0); Hemoglobin 13.7 g/dL (14.0-18.0); Mean Corpuscular HGB CONC 35.6 g/dL (32.0-36.0); Mean Corpuscular Hemoglobin 34.4 pg (27.0-31.0); Mean Corpuscular Volume 96.8 fL (78.0-98.0); Mean Platelet Volume 7.2 fL (7.4-10.4); Platelet Count 224 thou/uL (130-400); RBC Distribution Width 12.4 % (11.5-14.5); Red Blood Cell (RBC) Count 3.97 mill/uL (4.70-6.10); White Blood Cell (WBC) Count 12.7 thou/uL (4.8-10.8)
[2021-09-13 15:14] LABS: ALT (SGPT) 21 U/L (8-55); AST (SGOT) 18 U/L (5-34); Albumin 4.7 g/dL (3.4-4.8); Alkaline Phosphatase 99 U/L (40-110); Anion Gap 17 mmol/L (10-20); BUN (Urea Nitrogen) 16 mg/dL (8.4-25.7); Bilirubin, Total 0.6 mg/dL (0.2-1.2); Calc. Creatinine Clearance 0 mL/min (70-130); Calcium 10.2 mg/dL (7.8-10.44); Carbon Dioxide 23 mmol/L (23-31); Chloride 102 mmol/L (98-107); Globulin 3.3 g/dL (2.4-3.5); Glucose 128 mg/dL (83-110); Lipase 33 U/L (8-78); Potassium 4.5 mmol/L (3.5-5.1); Sodium 137 mmol/L (136-145)
[2021-09-13 15:15] LABS: CKMB 3.1 ng/mL (0-6.6)
[2021-09-13] MEDS ORDERED: Fentanyl 100 MCG/2 ML VIAL ONE (18:26)
[2021-09-13] MEDS ORDERED: Furosemide 40 MG/4 ML VIAL ONE (18:27)
[2021-09-13] MEDS ORDERED: Ketorolac Tromethamine 30 MG/ML VIAL ONE (18:27)
[2021-09-13 19:21] LABS: Troponin I 0.093 ng/mL (< 0.028)
[2021-09-13] MEDS ORDERED: Acetaminophen 325 MG TAB PO PRN (21:41)
[2021-09-13] MEDS ORDERED: Ondansetron PF 4 MG/2 ML Vial IVP PRN (21:41)
[2021-09-13] MEDS ORDERED: traMADol HCl 50 MG TAB PO PRN (21:46)
[2021-09-13] MEDS ORDERED: HumaLOG 300 UNITS/3 ML VIAL SC PRN ×2 (21:52)
[2021-09-13] MEDS ORDERED: Dextrose 5% in Water 1,000 ML IV PRN (21:52)
[2021-09-13] MEDS ORDERED: Dextrose 50% Abboject 50 ML SYRINGE SLOW IVP PRN (21:52)
[2021-09-13] MEDS ORDERED: hydrALAZINE 20 MG/ML VIAL SLOW IVP PRN (22:09)
[2021-09-13 22:30] LABS: Troponin I 0.098 ng/mL (< 0.028)
[2021-09-13] MEDS ORDERED: Aspirin 325 MG TAB ONE (23:49)
[2021-09-13] MEDS ORDERED: Nitroglycerin 2% Ointment 1 INCH/1 GM Packet ONE (23:49)
[2021-09-14] MEDS: Furosemide 20 MG/2 ML VIAL SLOW IVP SCH ×2 (07:16→20:01)
[2021-09-14 07:32] LABS: #Eosinphils 0.8 thou/uL (0.0-0.7); #Monocytes 0.7 thou/uL (0.11-0.59); #Neutrophils 3.9 thou/uL (1.40-6.50); %Basophils 0.4 % (0.0-1.0); %Eosinophils 10.3 % (0.0-10.0); %Lymphocytes 26.9 % (21.0-51.0); %Monocytes 9.7 % (0.0-10.0); %Neutrophils 52.6 % (42.0-75.0); Hemoglobin 12.3 g/dL (14.0-18.0); Mean Corpuscular HGB CONC 35.1 g/dL (32.0-36.0); Mean Corpuscular Hemoglobin 34.2 pg (27.0-31.0); Mean Corpuscular Volume 97.3 fL (78.0-98.0); Platelet Count 192 thou/uL (130-400); RBC Distribution Width 12.4 % (11.5-14.5); Red Blood Cell (RBC) Count 3.61 mill/uL (4.70-6.10); White Blood Cell (WBC) Count 7.4 thou/uL (4.8-10.8)
[2021-09-14 07:45] LABS: Troponin I 0.109 ng/mL (< 0.028)
[2021-09-14 07:53] LABS: Anion Gap 15 mmol/L (10-20); BUN (Urea Nitrogen) 18 mg/dL (8.4-25.7); Calc. Creatinine Clearance 0 mL/min (70-130); Calcium 9.3 mg/dL (7.8-10.44); Carbon Dioxide 24 mmol/L (23-31); Glucose 123 mg/dL (83-110); Potassium 3.7 mmol/L (3.5-5.1)
[2021-09-14 08:04] LABS: Chloride 102 mmol/L (98-107); Sodium 137 mmol/L (136-145)
[2021-09-14 08:21] LABS: Bacteria/HPF None Seen HPF (None Seen); Bilirubin Negative (Negative); Blood, Urine Negative (Negative); Clarity Clear (Clear); Glucose, Urine (Dipstick) Normal (Negative); Ketone, Urine Negative (Negative); Leukocyte Negative Leu/uL (Negative); Nitrite Negative (Negative); Protein, Urine (Dipstick) Negative (Neg-Trace); RBC/HPF 0-3 HPF (0-3); Specific Gravity, Urine 1.013 (1.002-1.036); Squamous Epithelial 0-3 HPF (0-3); Urobilinogen Normal mg/dL (Less than 2); WBC/HPF 0-3 HPF (0-3)
[2021-09-14 09:11] VITALS: BMI 29.9
[2021-09-14 14:41] LABS: SARS-CoV-2 PCR by NAA Not Detected (NotDetected)
[2021-09-14] MEDS: Dronedarone HCl 400 MG TAB PO SCH (20:01)
[2021-09-14] MEDS: metFORMIN 500 MG TAB PO SCH (20:01)
[2021-09-14] MEDS: Allopurinol 100 MG TAB PO SCH ×2 (20:21→21:15)
[2021-09-14] MEDS: Ferrous Sulfate 325 MG TAB PO SCH (20:22)
[2021-09-14] MEDS: Enoxaparin Sodium 40 MG/0.4 ML SYRINGE SC SCH (20:22)
[2021-09-14] MEDS: Ramipril 5 MG CAP PO SCH (20:22)
[2021-09-14] MEDS ORDERED: Aspirin Chewable 81 MG TAB PO SCH (21:00)
[2021-09-14] MEDS ORDERED: Tamsulosin HCl 0.4 MG CAP PO SCH (21:00)
[2021-09-14] MEDS ORDERED: Atorvastatin Calcium 20 MG TAB PO SCH (21:00)
[2021-09-15 05:30] LABS: #Eosinphils 0.7 thou/uL (0.0-0.7); #Lymphocytes 2.3 thou/uL (1.20-3.40); #Monocytes 0.6 thou/uL (0.11-0.59); #Neutrophils 4.4 thou/uL (1.40-6.50); %Basophils 0.4 % (0.0-1.0); %Eosinophils 8.5 % (0.0-10.0); %Lymphocytes 28.2 % (21.0-51.0); %Monocytes 8.1 % (0.0-10.0); %Neutrophils 54.8 % (42.0-75.0); Hemoglobin 12.6 g/dL (14.0-18.0); Mean Corpuscular HGB CONC 34.2 g/dL (32.0-36.0); Mean Corpuscular Volume 96.6 fL (78.0-98.0); Mean Platelet Volume 7.5 fL (7.4-10.4); Platelet Count 199 thou/uL (130-400); RBC Distribution Width 12.5 % (11.5-14.5); Red Blood Cell (RBC) Count 3.83 mill/uL (4.70-6.10)
[2021-09-15 05:38] LABS: Anion Gap 13 mmol/L (10-20); BUN (Urea Nitrogen) 17 mg/dL (8.4-25.7); Calc. Creatinine Clearance 65 mL/min (70-130); Calcium 9.3 mg/dL (7.8-10.44); Carbon Dioxide 25 mmol/L (23-31); Chloride 103 mmol/L (98-107); Glucose 128 mg/dL (83-110); Potassium 3.7 mmol/L (3.5-5.1); Sodium 137 mmol/L (136-145)
[2021-09-15] MEDS: Furosemide 20 MG/2 ML VIAL SLOW IVP SCH (06:35)
[2021-09-15] MEDS ORDERED: Lantus 1000 UNITS/10 ML VIAL SC SCH (09:00)
[2021-09-15] MEDS: Enoxaparin Sodium 40 MG/0.4 ML SYRINGE SC SCH (09:22)
[2021-09-15] MEDS: metFORMIN 500 MG TAB PO SCH (09:23)
[2021-09-15] MEDS: Ferrous Sulfate 325 MG TAB PO SCH (09:23)
[2021-09-15] MEDS: Ramipril 5 MG CAP PO SCH (09:23)
[2021-09-15] MEDS: Dronedarone HCl 400 MG TAB PO SCH (09:23)
[2021-09-15] MEDS: Allopurinol 100 MG TAB PO SCH (09:24)
[2021-09-15 11:19] VITALS: TEMP 98.5
[2021-09-15 12:39] VITALS: BP 166/75
== END 2021-09-15 12:20 | disposition home or self-care (01) | DRG 562 ==
LOC: ERS 14:00 → ERHOLD 20:12 → 2NO 09-14 06:11 → OBSVTOIN 09-15 08:59
PROVIDERS: ADMIT Internal Medicine; ATTEND Physician Assistant Medical
DX: S39.012A Strain of muscle, fascia and tendon of lower back, initial encounter (principal); I50.33 Acute on chronic diastolic (congestive) heart failure; I48.20 Chronic atrial fibrillation, unspecified; I11.0 Hypertensive heart disease with heart failure; I48.91 Unspecified atrial fibrillation; E11.9 Type 2 diabetes mellitus without complications; C61 Malignant neoplasm of prostate; E87.70 Fluid overload, unspecified; D72.829 Elevated white blood cell count, unspecified; I44.0 Atrioventricular block, first degree; Z88.0 Allergy status to penicillin; Z79.899 Other long term (current) drug therapy; Z79.84 Long term (current) use of oral hypoglycemic drugs; Z79.82 Long term (current) use of aspirin; Z85.038 Personal history of other malignant neoplasm of large intestine
CPT/HCPCS: 36415; 36416; 71045; 72100; 80048; 80053; 82553; 83690; 83880; 84484; 85025; 93005; 93306; 96372; 96374; 96375; 96376; G0378; J1650; J1815; J1885; J1940; J3010; U0003; U0005

== ENCOUNTER 2022-02-08 22:01 | Inpatient (IN) | payer MEDICARE ==
[2022-02-08 22:45] LABS: #Basophils 0.1 thou/uL (0.0-0.2); #Eosinphils 0.7 thou/uL (0.0-0.7); #Lymphocytes 2.9 thou/uL (1.20-3.40); #Monocytes 0.9 thou/uL (0.11-0.59); #Neutrophils 4.2 thou/uL (1.40-6.50); %Basophils 0.7 % (0.0-1.0); %Eosinophils 8.1 % (0.0-10.0); %Lymphocytes 33.1 % (21.0-51.0); %Monocytes 10.3 % (0.0-10.0); %Neutrophils 47.8 % (42.0-75.0); Hemoglobin 13.1 g/dL (14.0-18.0); Mean Corpuscular HGB CONC 33.5 g/dL (32.0-36.0); Mean Corpuscular Hemoglobin 33.2 pg (27.0-31.0); Mean Corpuscular Volume 99.2 fL (78.0-98.0); Mean Platelet Volume 7.1 fL (7.4-10.4); Platelet Count 266 thou/uL (130-400); RBC Distribution Width 13.5 % (11.5-14.5); Red Blood Cell (RBC) Count 3.96 mill/uL (4.70-6.10); White Blood Cell (WBC) Count 8.9 thou/uL (4.8-10.8)
[2022-02-08 23:00] LABS: INR-International Normal Ratio 1.1; PTT 30.9 sec (22.9-36.1); Prothrombin Time 14.3 sec (12.0-14.7)
[2022-02-08 23:29] LABS: CKMB 2.8 ng/mL (0-6.6)
[2022-02-08 23:45] LABS: Albumin 4.5 g/dL (3.4-4.8)
[2022-02-08 23:47] LABS: Chloride 99 mmol/L (98-107); Potassium 4.4 mmol/L (3.5-5.1); Sodium 138 mmol/L (136-145)
[2022-02-08 23:48] LABS: Globulin 3.4 g/dL (2.4-3.5); Glucose 128 mg/dL (83-110); Protein, Total 7.9 g/dL (5.8-8.1)
[2022-02-08 23:49] LABS: Carbon Dioxide 24 mmol/L (23-31)
[2022-02-08 23:50] LABS: Bilirubin, Total 0.8 mg/dL (0.2-1.2)
[2022-02-08 23:51] LABS: Alkaline Phosphatase 115 U/L (40-110); Calc. Creatinine Clearance 0 mL/min (70-130); Estimated GFR 73
[2022-02-08 23:52] LABS: BUN (Urea Nitrogen) 18 mg/dL (8.4-25.7); Calcium 10.1 mg/dL (7.8-10.44)
[2022-02-08 23:53] LABS: AST (SGOT) 19 U/L (5-34)
[2022-02-08 23:54] LABS: ALT (SGPT) 15 U/L (8-55)
[2022-02-09] MEDS ORDERED: Pantoprazole 40 MG VIAL ONE ×2 (00:40→10:35)
[2022-02-09] MEDS ORDERED: Dextrose 5 % And 0.9 % NaCl 1,000 ML IV SCH (00:45)
[2022-02-09] MEDS ORDERED: HumaLOG 300 UNITS/3 ML VIAL SC PRN ×2 (01:43)
[2022-02-09] MEDS ORDERED: Dextrose 5% in Water 1,000 ML IV PRN (01:43)
[2022-02-09] MEDS ORDERED: Dextrose 50% Abboject 50 ML SYRINGE SLOW IVP PRN (01:43)
[2022-02-09] MEDS: Lactated Ringer's 1,000 ML IV SCH ×4 (03:30→22:26)
[2022-02-09 05:04] LABS: #Basophils 0.1 thou/uL (0.0-0.2); #Eosinphils 0.6 thou/uL (0.0-0.7); #Monocytes 0.6 thou/uL (0.11-0.59); #Neutrophils 4.7 thou/uL (1.40-6.50); %Basophils 0.8 % (0.0-1.0); %Eosinophils 7.8 % (0.0-10.0); %Lymphocytes 25.3 % (21.0-51.0); %Monocytes 7.8 % (0.0-10.0); %Neutrophils 58.3 % (42.0-75.0); Mean Corpuscular HGB CONC 33.2 g/dL (32.0-36.0); Mean Corpuscular Hemoglobin 32.5 pg (27.0-31.0); Mean Platelet Volume 7.3 fL (7.4-10.4); Platelet Count 229 thou/uL (130-400); RBC Distribution Width 13.6 % (11.5-14.5); Red Blood Cell (RBC) Count 3.69 mill/uL (4.70-6.10)
[2022-02-09 05:22] LABS: Iron 54 ug/dL (65-175); Iron Binding Capacity, Total 254 mcg/dL (261-462)
[2022-02-09 05:23] LABS: Anion Gap 13 mmol/L (10-20); BUN (Urea Nitrogen) 15 mg/dL (8.4-25.7); Calc. Creatinine Clearance 0 mL/min (70-130); Calcium 9.6 mg/dL (7.8-10.44); Carbon Dioxide 26 mmol/L (23-31); Chloride 101 mmol/L (98-107); Estimated GFR 89; Glucose 109 mg/dL (83-110); Iron 54 ug/dL (65-175); Iron Binding Capacity, Total 255 mcg/dL (261-462); Potassium 3.7 mmol/L (3.5-5.1); Sodium 136 mmol/L (136-145)
[2022-02-09 05:27] LABS: Troponin I 0.186 ng/mL (< 0.028)
[2022-02-09 08:08] LABS: SARS-CoV-2 NAA Rapid Test Not Detected (NotDetected)
[2022-02-09 08:11] LABS: Bacteria/HPF 3+ HPF (None Seen); Bilirubin Negative (Negative); Blood, Urine Negative (Negative); Clarity Clear (Clear); Glucose, Urine (Dipstick) Normal (Negative); Ketone, Urine Negative (Negative); Leukocyte 75 Leu/uL (Negative); Nitrite 2+ (Negative); Protein, Urine (Dipstick) Negative (Neg-Trace); RBC/HPF 0-3 HPF (0-3); Specific Gravity, Urine 1.006 (1.002-1.036); Squamous Epithelial None Seen HPF (0-3); Urobilinogen Normal mg/dL (Less than 2); pH, Urine 6.5 (5.0-9.0)
[2022-02-09] MEDS ORDERED: Ramipril 5 MG CAP PO SCH (09:00)
[2022-02-09] MEDS ORDERED: Furosemide 20 MG TAB PO SCH (09:00)
[2022-02-09] MEDS ORDERED: Amlodipine 5 MG TAB PO SCH (09:00)
[2022-02-09] MEDS ORDERED: Hydrochlorothiazide 25 MG TAB PO SCH (09:00)
[2022-02-09 10:21] LABS: Hemoglobin 10.7 g/dL (14.0-18.0)
[2022-02-09] MEDS: Pantoprazole 40 MG VIAL IVP SCH ×2 (11:01→20:24)
[2022-02-09] MEDS: Ferrous Sulfate 325 MG TAB PO SCH (11:01)
[2022-02-09] MEDS: metFORMIN 500 MG TAB PO SCH ×2 (11:01→20:23)
[2022-02-09] MEDS: Allopurinol 100 MG TAB PO SCH ×2 (11:01→20:22)
[2022-02-09] MEDS ORDERED: Tamsulosin HCl 0.4 MG CAP PO SCH ×4 (11:30→21:00)
[2022-02-09 14:14] LABS: Hemoglobin 13.2 g/dL (14.0-18.0)
[2022-02-09 15:01] VITALS: BMI 24.3
[2022-02-09] MEDS ORDERED: Atorvastatin Calcium 20 MG TAB PO SCH (21:00)
[2022-02-10 04:44] LABS: #Basophils 0.1 thou/uL (0.0-0.2); #Eosinphils 0.7 thou/uL (0.0-0.7); #Lymphocytes 1.8 thou/uL (1.20-3.40); #Monocytes 0.6 thou/uL (0.11-0.59); %Basophils 0.8 % (0.0-1.0); %Eosinophils 10.3 % (0.0-10.0); %Lymphocytes 25.3 % (21.0-51.0); %Monocytes 8.5 % (0.0-10.0); %Neutrophils 55.1 % (42.0-75.0); Hemoglobin 11.8 g/dL (14.0-18.0); Mean Corpuscular HGB CONC 33.5 g/dL (32.0-36.0); Mean Corpuscular Hemoglobin 33.3 pg (27.0-31.0); Mean Corpuscular Volume 99.3 fL (78.0-98.0); Mean Platelet Volume 7.5 fL (7.4-10.4); Platelet Count 212 thou/uL (130-400); RBC Distribution Width 13.5 % (11.5-14.5); Red Blood Cell (RBC) Count 3.53 mill/uL (4.70-6.10); White Blood Cell (WBC) Count 7.2 thou/uL (4.8-10.8)
[2022-02-10] MEDS: Lactated Ringer's 1,000 ML IV SCH (06:06)
[2022-02-10] MEDS ORDERED: Ramipril 5 MG CAP PO SCH (09:00)
[2022-02-10] MEDS ORDERED: Tamsulosin HCl 0.4 MG CAP PO SCH (09:00)
[2022-02-10] MEDS: Ferrous Sulfate 325 MG TAB PO SCH (09:01)
[2022-02-10] MEDS: Pantoprazole 40 MG VIAL IVP SCH (09:02)
[2022-02-10] MEDS: Allopurinol 100 MG TAB PO SCH (09:02)
[2022-02-10] MEDS: metFORMIN 500 MG TAB PO SCH (09:02)
[2022-02-10 12:15] VITALS: BP 130/64; TEMP 97.9
== END 2022-02-10 16:20 | disposition home or self-care (01) | DRG 378 ==
LOC: ERS 22:01 → 2SW 02-09 00:39 → ERHOLD 02-09 00:49 → 2SW 02-09 14:28
PROVIDERS: ADMIT Family Medicine; ATTEND Family Medicine
DX: K92.1 Melena (principal); I48.20 Chronic atrial fibrillation, unspecified; I47.2 Ventricular tachycardia; I48.92 Unspecified atrial flutter; E11.9 Type 2 diabetes mellitus without complications; I10 Essential (primary) hypertension; K59.09 Other constipation; M10.9 Gout, unspecified; N40.0 Benign prostatic hyperplasia without lower urinary tract symptoms; D63.8 Anemia in other chronic diseases classified elsewhere; T45.4X5A Adverse effect of iron and its compounds, initial encounter; Z20.822 Contact with and (suspected) exposure to COVID-19; Z88.0 Allergy status to penicillin; Z79.4 Long term (current) use of insulin; Z85.038 Personal history of other malignant neoplasm of large intestine; Z79.84 Long term (current) use of oral hypoglycemic drugs; Z79.899 Other long term (current) drug therapy
CPT/HCPCS: 36415; 36416; 71045; 80048; 80053; 81003; 81015; 82553; 82728; 83540; 83550; 84484; 85025; 85610; 85730; 86850; 86900; 86901; 93005; 96374; C9113; J7120; U0002

== ENCOUNTER 2022-11-27 12:24 | Outpatient (CLI) | payer MEDICARE | END 2022-11-27 12:25 | disposition home or self-care (01) | LOC: CT 12:24 | PROVIDERS: ATTEND Internal Medicine Hematology & Oncology | DX: C18.0 Malignant neoplasm of cecum (principal); C43.62 Malignant melanoma of left upper limb, including shoulder; C61 Malignant neoplasm of prostate; R91.8 Other nonspecific abnormal finding of lung field; K57.30 Diverticulosis of large intestine without perforation or abscess without bleeding | CPT/HCPCS: 71260; 74177; 82565 ==

== ENCOUNTER 2023-08-14 20:35 | Inpatient (IN) | payer MEDICARE ==
[2023-08-14 21:25] LABS: #Basophils 0.1 thou/uL (0.0-0.2); #Eosinphils 0.5 thou/uL (0.0-0.7); #Monocytes 0.6 thou/uL (0.11-0.59); #Neutrophils 5.2 thou/uL (1.40-6.50); %Eosinophils 5.5 % (0.0-10.0); %Lymphocytes 22.7 % (21.0-51.0); %Monocytes 7.3 % (0.0-10.0); %Neutrophils 63.1 % (42.0-75.0); Hematocrit 46.1 % (42.0-52.0); Hemoglobin 15.8 g/dL (14.0-18.0); Mean Corpuscular HGB CONC 34.3 g/dL (32.0-36.0); Mean Corpuscular Hemoglobin 31.8 pg (27.0-31.0); Mean Corpuscular Volume 92.8 fl (78.0-98.0); Mean Platelet Volume 9.6 fL (7.4-10.4); Platelet Count 200 10x3/uL (130-400); RBC Distribution Width 14.2 % (11.5-14.5); Red Blood Cell (RBC) Count 4.97 mill/uL (4.70-6.10); White Blood Cell (WBC) Count 8.2 10x3/uL (4.8-10.8)
[2023-08-14 21:58] LABS: ALT (SGPT) 18 U/L (8-55); AST (SGOT) 22 U/L (5-34); Albumin 4.4 g/dL (3.4-4.8); Alkaline Phosphatase 190 U/L (40-110); Anion Gap 17 mmol/L (10-20); BUN (Urea Nitrogen) 17 mg/dL (8.4-25.7); Calc. Creatinine Clearance 0 mL/min (70-130); Calcium 9.7 mg/dL (7.8-10.44); Carbon Dioxide 21 mmol/L (23-31); Chloride 103 mmol/L (98-107); Estimated GFR 62; Globulin 3.7 g/dL (2.4-3.5); Glucose 206 mg/dL (83-110); Magnesium 2.1 mg/dL (1.6-2.6); Potassium 4.3 mmol/L (3.5-5.1); Protein, Total 8.1 g/dL (5.8-8.1); Sodium 137 mmol/L (136-145)
[2023-08-14] MEDS ORDERED: Ondansetron ODT 4 MG TAB SL PRN (23:45)
[2023-08-14] MEDS ORDERED: Ondansetron PF 4 MG/2 ML Vial IVP PRN (23:45)
[2023-08-14] MEDS ORDERED: Morphine 4 MG/ML VIAL SLOW IVP PRN (23:53)
[2023-08-15] MEDS ORDERED: Acetaminophen 325 MG TAB PO PRN (00:28)
[2023-08-15] MEDS ORDERED: Acetaminophen 650 MG Suppository PR PRN (00:28)
[2023-08-15] MEDS ORDERED: Glucagon 1 MG/ML KIT IM PRN (00:59)
[2023-08-15] MEDS ORDERED: HumaLOG 300 UNITS/3 ML VIAL SC PRN ×2 (00:59)
[2023-08-15] MEDS ORDERED: Dextrose 5% in Water 1,000 ML IV PRN (00:59)
[2023-08-15] MEDS ORDERED: Dextrose 50% Abboject 50 ML SYRINGE SLOW IVP PRN (00:59)
[2023-08-15] MEDS ORDERED: HYDROcodone/Acetaminophen 5/325 mg Tablet PO PRN (01:18)
[2023-08-15 01:19] LABS: Troponin I 0.185 ng/mL (< 0.028)
[2023-08-15 04:02] LABS: #Basophils 0.1 thou/uL (0.0-0.2); #Eosinphils 0.6 thou/uL (0.0-0.7); #Monocytes 0.8 thou/uL (0.11-0.59); #Neutrophils 3.5 thou/uL (1.40-6.50); %Basophils 1.2 % (0.0-1.0); %Eosinophils 8.7 % (0.0-10.0); %Monocytes 11.5 % (0.0-10.0); %Neutrophils 53.3 % (42.0-75.0); Hematocrit 46.4 % (42.0-52.0); Hemoglobin 15.3 g/dL (14.0-18.0); Mean Corpuscular Hemoglobin 30.7 pg (27.0-31.0); Mean Platelet Volume 9.8 fL (7.4-10.4); Platelet Count 191 10x3/uL (130-400); RBC Distribution Width 14.2 % (11.5-14.5); Red Blood Cell (RBC) Count 4.99 mill/uL (4.70-6.10); White Blood Cell (WBC) Count 6.6 10x3/uL (4.8-10.8)
[2023-08-15 04:23] LABS: Anion Gap 13 mmol/L (10-20); BUN (Urea Nitrogen) 19 mg/dL (8.4-25.7); Calc. Creatinine Clearance 66 mL/min (70-130); Calcium 9.8 mg/dL (7.8-10.44); Carbon Dioxide 22 mmol/L (23-31); Chloride 105 mmol/L (98-107); Estimated GFR 76; Glucose 132 mg/dL (83-110); Magnesium 2.1 mg/dL (1.6-2.6); Potassium 3.8 mmol/L (3.5-5.1); Sodium 136 mmol/L (136-145)
[2023-08-15 04:34] LABS: Troponin I 0.179 ng/mL (< 0.028)
[2023-08-15] MEDS ORDERED: Potassium Chloride 20 MEQ TAB PO SCH (08:00)
[2023-08-15 08:59] LABS: Bilirubin Negative (Negative); Blood, Urine Negative (Negative); CAUTI Indications for Culture Alt mental st,lethar; Clarity Clear (Clear); Glucose, Urine (Dipstick) Greater than 1000 mg/dL (Negative); Ketone, Urine Trace mg/dL (Negative); Leukocyte 250 Leu/uL (Negative); Nitrite Negative (Negative); Protein, Urine (Dipstick) 10 mg/dL (Neg-Trace); RBC/HPF 0-3 HPF (0-3); Squamous Epithelial 0-3 HPF (0-3); Urobilinogen Normal mg/dL (Less than 2); WBC/HPF Greater than 50 HPF (0-3); pH, Urine 5.5 (5.0-9.0)
[2023-08-15] MEDS ORDERED: Insulin Glargine 30 UNITS/0.3 ML VIAL SC SCH (09:00)
[2023-08-15] MEDS ORDERED: metFORMIN 500 MG TAB PO SCH (09:00)
[2023-08-15 09:02] LABS: Bacteria/HPF 1+ HPF (None Seen)
[2023-08-15 09:04] LABS: Urine Culture Reflex Yes Yes
[2023-08-15] MEDS: Insulin Glargine 30 UNITS/0.3 ML VIAL SC SCH (09:07)
[2023-08-15] MEDS ORDERED: Potassium Chloride 20 MEQ TAB ONE (09:08)
[2023-08-15] MEDS ORDERED: Aspirin Chewable 81 MG TAB ONE (09:08)
[2023-08-15] MEDS ORDERED: Famotidine 20 MG TAB ONE (09:09)
[2023-08-15] MEDS: Aspirin 81 mg Enteric Coated Tablet PO SCH (09:11)
[2023-08-15] MEDS: Famotidine 20 MG TAB PO SCH ×2 (09:11→19:33)
[2023-08-15] MEDS ORDERED: Ramipril 5 MG CAP PO SCH (09:45)
[2023-08-15] MEDS ORDERED: Fosfomycin 3 GM/Packet PO SCH (10:00)
[2023-08-15 17:42] VITALS: BMI 24.7
[2023-08-15] MEDS: Atorvastatin Calcium 40 MG TAB PO SCH (19:33)
[2023-08-15] MEDS: Allopurinol 100 MG TAB PO SCH (19:34)
[2023-08-15] MEDS: Tamsulosin HCl 0.4 MG CAP PO SCH (19:34)
[2023-08-16 05:17] LABS: Anion Gap 13 mmol/L (10-20); BUN (Urea Nitrogen) 26 mg/dL (8.4-25.7); Calc. Creatinine Clearance 51 mL/min (70-130); Calcium 9.2 mg/dL (7.8-10.44); Carbon Dioxide 21 mmol/L (23-31); Chloride 104 mmol/L (98-107); Estimated GFR 60; Glucose 127 mg/dL (83-110); Potassium 3.8 mmol/L (3.5-5.1); Sodium 134 mmol/L (136-145)
[2023-08-16] MEDS ORDERED: Ramipril 5 MG CAP PO SCH ×2 (09:00→21:00)
[2023-08-16] MEDS: Aspirin 81 mg Enteric Coated Tablet PO SCH (09:01)
[2023-08-16] MEDS: Insulin Glargine 30 UNITS/0.3 ML VIAL SC SCH (09:02)
[2023-08-16] MEDS: Famotidine 20 MG TAB PO SCH ×2 (09:02→22:20)
[2023-08-16] MEDS: Allopurinol 100 MG TAB PO SCH ×2 (09:02→22:20)
[2023-08-16] MEDS: Empagliflozin 10 MG TAB PO SCH (09:02)
[2023-08-16] MEDS ORDERED: Iopamidol-370 76% 500 ML MDV (1 ML CHARGE) ONE (11:58)
[2023-08-16] MEDS: Tamsulosin HCl 0.4 MG CAP PO SCH (22:20)
[2023-08-16] MEDS: Atorvastatin Calcium 40 MG TAB PO SCH (22:21)
[2023-08-17 06:24] LABS: Anion Gap 14 mmol/L (10-20); BUN (Urea Nitrogen) 20 mg/dL (8.4-25.7); Calc. Creatinine Clearance 62 mL/min (70-130); Calcium 9.3 mg/dL (7.8-10.44); Carbon Dioxide 23 mmol/L (23-31); Chloride 104 mmol/L (98-107); Estimated GFR 76; Glucose 98 mg/dL (83-110); Potassium 3.8 mmol/L (3.5-5.1); Sodium 137 mmol/L (136-145)
[2023-08-17] MEDS: Allopurinol 100 MG TAB PO SCH ×2 (09:29→20:58)
[2023-08-17] MEDS: Aspirin 81 mg Enteric Coated Tablet PO SCH (09:29)
[2023-08-17] MEDS: Insulin Glargine 30 UNITS/0.3 ML VIAL SC SCH (09:30)
[2023-08-17] MEDS: Empagliflozin 10 MG TAB PO SCH (09:30)
[2023-08-17] MEDS: Famotidine 20 MG TAB PO SCH ×2 (09:30→20:58)
[2023-08-17 12:08] LABS: #Basophils 0.1 thou/uL (0.0-0.2); #Eosinphils 0.6 thou/uL (0.0-0.7); #Monocytes 0.7 thou/uL (0.11-0.59); #Neutrophils 3.9 thou/uL (1.40-6.50); %Basophils 1.5 % (0.0-1.0); %Eosinophils 8.6 % (0.0-10.0); %Lymphocytes 26.9 % (21.0-51.0); %Monocytes 9.2 % (0.0-10.0); %Neutrophils 53.7 % (42.0-75.0); Hematocrit 43.6 % (42.0-52.0); Hemoglobin 14.8 g/dL (14.0-18.0); Mean Corpuscular HGB CONC 33.9 g/dL (32.0-36.0); Mean Corpuscular Hemoglobin 31.7 pg (27.0-31.0); Mean Corpuscular Volume 93.4 fl (78.0-98.0); Mean Platelet Volume 9.7 fL (7.4-10.4); Platelet Count 194 10x3/uL (130-400); RBC Distribution Width 14.6 % (11.5-14.5); Red Blood Cell (RBC) Count 4.67 mill/uL (4.70-6.10); White Blood Cell (WBC) Count 7.2 10x3/uL (4.8-10.8)
[2023-08-17 12:30] LABS: Anion Gap 14 mmol/L (10-20); BUN (Urea Nitrogen) 21 mg/dL (8.4-25.7); Calc. Creatinine Clearance 61 mL/min (70-130); Calcium 9.5 mg/dL (7.8-10.44); Carbon Dioxide 21 mmol/L (23-31); Chloride 106 mmol/L (98-107); Estimated GFR 74; Glucose 129 mg/dL (83-110); Potassium 4.2 mmol/L (3.5-5.1); Sodium 137 mmol/L (136-145)
[2023-08-17 15:41] LABS: #Basophils 0.1 thou/uL (0.0-0.2); #Eosinphils 0.6 thou/uL (0.0-0.7); #Monocytes 0.6 thou/uL (0.11-0.59); #Neutrophils 3.3 thou/uL (1.40-6.50); %Basophils 1.7 % (0.0-1.0); %Eosinophils 9.6 % (0.0-10.0); %Lymphocytes 27.8 % (21.0-51.0); %Neutrophils 51.7 % (42.0-75.0); Hematocrit 44.7 % (42.0-52.0); Mean Corpuscular HGB CONC 33.6 g/dL (32.0-36.0); Mean Corpuscular Hemoglobin 31.4 pg (27.0-31.0); Mean Corpuscular Volume 93.7 fl (78.0-98.0); Mean Platelet Volume 9.8 fL (7.4-10.4); Platelet Count 207 10x3/uL (130-400); RBC Distribution Width 14.3 % (11.5-14.5); Red Blood Cell (RBC) Count 4.77 mill/uL (4.70-6.10); White Blood Cell (WBC) Count 6.5 10x3/uL (4.8-10.8)
[2023-08-17 16:03] LABS: BUN (Urea Nitrogen) 22 mg/dL (8.4-25.7); Calc. Creatinine Clearance 54 mL/min (70-130); Calcium 9.6 mg/dL (7.8-10.44); Carbon Dioxide 22 mmol/L (23-31); Chloride 105 mmol/L (98-107); Estimated GFR 65; Glucose 172 mg/dL (83-110); Potassium 4.3 mmol/L (3.5-5.1); Sodium 137 mmol/L (136-145)
[2023-08-17 18:07] LABS: Anion Gap 14 mmol/L (10-20)
[2023-08-17] MEDS: Tamsulosin HCl 0.4 MG CAP PO SCH (20:58)
[2023-08-17] MEDS: Atorvastatin Calcium 40 MG TAB PO SCH (20:58)
[2023-08-18 06:27] LABS: Anion Gap 16 mmol/L (10-20); BUN (Urea Nitrogen) 21 mg/dL (8.4-25.7); Calc. Creatinine Clearance 53 mL/min (70-130); Calcium 9.5 mg/dL (7.8-10.44); Carbon Dioxide 20 mmol/L (23-31); Chloride 107 mmol/L (98-107); Estimated GFR 63; Glucose 116 mg/dL (83-110); Magnesium 2.2 mg/dL (1.6-2.6); Sodium 139 mmol/L (136-145)
[2023-08-18] MEDS: Allopurinol 100 MG TAB PO SCH (09:33)
[2023-08-18] MEDS: Insulin Glargine 30 UNITS/0.3 ML VIAL SC SCH (09:33)
[2023-08-18] MEDS: Famotidine 20 MG TAB PO SCH (09:33)
[2023-08-18] MEDS: Aspirin 81 mg Enteric Coated Tablet PO SCH (09:33)
[2023-08-18] MEDS: Empagliflozin 10 MG TAB PO SCH (09:33)
[2023-08-18 11:41] VITALS: BP 115/72; TEMP 97.7
== END 2023-08-18 13:30 | disposition home or self-care (01) | DRG 315 ==
LOC: ERS 20:35 → ERHOLD 23:46 → 2NO 08-15 17:16 → OBSVTOIN 08-16 09:10
PROVIDERS: ADMIT Internal Medicine; ATTEND Internal Medicine
DX: I95.9 Hypotension, unspecified (principal); I47.29 Other ventricular tachycardia; I48.21 Permanent atrial fibrillation; I48.92 Unspecified atrial flutter; S01.112A Laceration without foreign body of left eyelid and periocular area, initial encounter; G47.33 Obstructive sleep apnea (adult) (pediatric); I10 Essential (primary) hypertension; E11.9 Type 2 diabetes mellitus without complications; D64.9 Anemia, unspecified; N40.0 Benign prostatic hyperplasia without lower urinary tract symptoms; M10.9 Gout, unspecified; R79.89 Other specified abnormal findings of blood chemistry; R82.81 Pyuria; I25.10 Atherosclerotic heart disease of native coronary artery without angina pectoris; I71.21 Aneurysm of the ascending aorta, without rupture; Z88.0 Allergy status to penicillin; Z79.4 Long term (current) use of insulin; Z79.899 Other long term (current) drug therapy; Z85.46 Personal history of malignant neoplasm of prostate; Z85.09 Personal history of malignant neoplasm of other digestive organs; Z95.0 Presence of cardiac pacemaker
CPT/HCPCS: 36415; 36416; 70450; 71045; 71275; 80048; 80053; 81001; 83735; 83880; 84443; 84484; 85025; 87086; 93005; 93306; G0378; J1815; Q9967

== ENCOUNTER 2023-09-20 11:53 | Outpatient (CLI) | payer MEDICARE ==
[2023-09-20 13:43] LABS: Hematocrit 41.9 % (38.8-50.0); Mean Corpuscular HGB CONC 33.4 g/dL (32.0-36.0); Mean Corpuscular Hemoglobin 31.2 pg (27.0-33.0); Mean Corpuscular Volume 93.3 fl (81.2-95.1); Mean Platelet Volume 11.3 fl (7.4-10.4); Platelet Count 170 10x3/uL (150-450); RBC Distribution Width 14.6 % (11.5-14.5); Red Blood Cell (RBC) Count 4.49 10x6/uL (4.32-5.72); White Blood Cell (WBC) Count 8.1 10x3/uL (3.5-10.5)
[2023-09-20 13:58] LABS: INR-International Normal Ratio 1.1; Prothrombin Time 11.4 sec (9.5-12.1)
[2023-09-20 13:59] LABS: Anion Gap 13 mmol/L (10-20); BUN (Urea Nitrogen) 11 mg/dL (8.4-25.7); Calc. Creatinine Clearance 0 mL/min (70-130); Calcium 9.6 mg/dL (7.8-10.44); Carbon Dioxide 27 mmol/L (23-31); Chloride 106 mmol/L (98-107); Estimated GFR 70; Glucose 166 mg/dL (83-110); Sodium 141 mmol/L (136-145)
== END 2023-09-20 11:54 | disposition home or self-care (01) ==
LOC: LABBT 11:53
PROVIDERS: ATTEND Urology
DX: Z01.812 Encounter for preprocedural laboratory examination (principal); N47.1 Phimosis
CPT/HCPCS: 80048; 85027; 85610; 85730

== ENCOUNTER 2023-10-16 08:08 | Outpatient (CLI) | payer MEDICARE ==
[2023-10-16] MEDS ORDERED: ISOVUE-370 76% MDV (1 ML CHARGE) ONE (10:49)
== END 2023-10-16 08:09 | disposition home or self-care (01) ==
LOC: CT 08:08
PROVIDERS: ATTEND Internal Medicine Hematology & Oncology
DX: C61 Malignant neoplasm of prostate (principal); C18.9 Malignant neoplasm of colon, unspecified; C43.9 Malignant melanoma of skin, unspecified; I25.10 Atherosclerotic heart disease of native coronary artery without angina pectoris; K80.20 Calculus of gallbladder without cholecystitis without obstruction; K40.90 Unilateral inguinal hernia, without obstruction or gangrene, not specified as recurrent; M19.012 Primary osteoarthritis, left shoulder; M19.011 Primary osteoarthritis, right shoulder; M84.48XA Pathological fracture, other site, initial encounter for fracture; M16.0 Bilateral primary osteoarthritis of hip; J98.11 Atelectasis; R91.8 Other nonspecific abnormal finding of lung field; R60.0 Localized edema; Z95.0 Presence of cardiac pacemaker; Z90.49 Acquired absence of other specified parts of digestive tract
CPT/HCPCS: 71260; 74177

== ENCOUNTER 2024-08-19 19:43 | Inpatient (IN) | payer MEDICARE ==
[2024-08-19 20:47] LABS: #Basophils 0.08 10x3/uL (0.0-0.2); %Basophils 1.3 % (0.0-1.0); %Eosinophils 3.1 % (0.0-10.0); %Lymphocytes 20.2 % (21.0-51.0); %Monocytes 10.9 % (0.0-10.0); %Neutrophils 64.2 % (42.0-75.0); Hematocrit 42.5 % (42.0-52.0); Hemoglobin 13.7 g/dL (14.0-18.0); Mean Corpuscular HGB CONC 32.2 g/dL (32.0-36.0); Mean Corpuscular Hemoglobin 31.6 pg (27.0-31.0); Mean Corpuscular Volume 98.2 fL (78.0-98.0); Mean Platelet Volume 10.7 fL (7.4-10.4); Platelet Count 174 10x3/uL (130-400); RBC Distribution Width 14.4 % (11.5-14.5); Red Blood Cell (RBC) Count 4.33 mill/uL (4.70-6.10)
[2024-08-19 21:01] LABS: ALT (SGPT) 18 U/L (8-55); AST (SGOT) 22 U/L (5-34); Albumin 3.8 g/dL (3.4-4.8); Alkaline Phosphatase 183 U/L (40-110); Anion Gap 16 mmol/L (10-20); BUN (Urea Nitrogen) 20 mg/dL (8.4-25.7); Bilirubin, Total 1.5 mg/dL (0.2-1.2); Calc. Creatinine Clearance 0 mL/min (70-130); Calcium 9.7 mg/dL (7.8-10.44); Carbon Dioxide 22 mmol/L (23-31); Chloride 103 mmol/L (98-107); Estimated GFR 67; Globulin 4.1 g/dL (2.4-3.5); Glucose 136 mg/dL (83-110); Potassium 5.1 mmol/L (3.5-5.1); Protein, Total 7.9 g/dL (5.8-8.1); Sodium 136 mmol/L (136-145)
[2024-08-19 21:05] LABS: Troponin I 0.179 ng/mL (< 0.028)
[2024-08-19] MEDS ORDERED: Furosemide 40 MG (4 mL) VIAL ONE (22:18)
[2024-08-19] MEDS ORDERED: Aspirin Chewable 81 MG TAB ONE ×2 (22:18)
[2024-08-19] MEDS ORDERED: Ondansetron PF 4 MG/2 ML Vial IVP PRN (23:53)
[2024-08-19] MEDS ORDERED: Acetaminophen 325 MG TAB PO PRN (23:53)
[2024-08-20] MEDS ORDERED: Dextrose 50% Abboject 50 ML SYRINGE SLOW IVP PRN (00:27)
[2024-08-20] MEDS ORDERED: Dextrose 5% in Water 1,000 ML IV PRN (00:27)
[2024-08-20] MEDS ORDERED: Glucagon 1 MG/ML KIT IM PRN (00:27)
[2024-08-20] MEDS ORDERED: Insulin Lispro 100 UNIT/ML 10 ML VIAL SC PRN ×2 (00:27)
[2024-08-20 03:35] VITALS: BMI 25.4
[2024-08-20] MEDS: Furosemide 40 MG (4 mL) VIAL SLOW IVP SCH (06:54)
[2024-08-20 08:08] LABS: #Basophils 0.06 10x3/uL (0.0-0.2); %Eosinophils 2.3 % (0.0-10.0); %Lymphocytes 24.6 % (21.0-51.0); %Monocytes 11.5 % (0.0-10.0); %Neutrophils 60.3 % (42.0-75.0); Hemoglobin 13.1 g/dL (14.0-18.0); Mean Corpuscular HGB CONC 32.8 g/dL (32.0-36.0); Mean Corpuscular Hemoglobin 32.2 pg (27.0-31.0); Mean Corpuscular Volume 98.3 fL (78.0-98.0); Platelet Count 161 10x3/uL (130-400); RBC Distribution Width 14.3 % (11.5-14.5); Red Blood Cell (RBC) Count 4.07 mill/uL (4.70-6.10)
[2024-08-20 08:22] LABS: Anion Gap 15 mmol/L (10-20); BUN (Urea Nitrogen) 20 mg/dL (8.4-25.7); Calc. Creatinine Clearance 68 mL/min (70-130); Calcium 9.5 mg/dL (7.8-10.44); Carbon Dioxide 22 mmol/L (23-31); Chloride 104 mmol/L (98-107); Estimated GFR 77; Glucose 128 mg/dL (83-110); Potassium 3.6 mmol/L (3.5-5.1); Sodium 137 mmol/L (136-145)
[2024-08-20 08:32] LABS: Critical Call Chem Troponin I RESULT DECREASING; Troponin I 0.205 ng/mL (< 0.028)
[2024-08-20] MEDS: Dapagliflozin Propanediol 10 MG TAB PO SCH (09:17)
[2024-08-20] MEDS: Enoxaparin 40 MG (0.4 mL) SYRINGE SC SCH (09:17)
[2024-08-20] MEDS: Aspirin 81 mg Enteric Coated Tablet PO SCH (09:17)
[2024-08-20] MEDS: Spironolactone 25 MG TAB PO SCH (09:17)
[2024-08-20] MEDS: metFORMIN 500 MG TAB PO SCH (17:29)
[2024-08-20] MEDS: Atorvastatin Calcium 40 MG TAB PO SCH (20:49)
[2024-08-20] MEDS: Allopurinol 100 MG TAB PO SCH (20:49)
[2024-08-20] MEDS: Tamsulosin HCl 0.4 MG CAP PO SCH (20:49)
[2024-08-20] MEDS: traZODone HCl 50 MG TAB PO SCH (20:49)
[2024-08-20] MEDS ORDERED: Aspirin 81 mg Enteric Coated Tablet PO SCH (21:00)
[2024-08-20] MEDS ORDERED: Atorvastatin Calcium 40 MG TAB PO SCH (21:00)
[2024-08-21 05:00] LABS: #Basophils 0.07 10x3/uL (0.0-0.2); %Basophils 1.3 % (0.0-1.0); %Eosinophils 4.1 % (0.0-10.0); %Lymphocytes 28.9 % (21.0-51.0); %Neutrophils 53.3 % (42.0-75.0); Hematocrit 40.6 % (42.0-52.0); Hemoglobin 13.7 g/dL (14.0-18.0); Mean Corpuscular HGB CONC 33.7 g/dL (32.0-36.0); Mean Corpuscular Hemoglobin 32.2 pg (27.0-31.0); Mean Corpuscular Volume 95.3 fL (78.0-98.0); Mean Platelet Volume 10.5 fL (7.4-10.4); Platelet Count 153 10x3/uL (130-400); RBC Distribution Width 14.1 % (11.5-14.5); Red Blood Cell (RBC) Count 4.26 mill/uL (4.70-6.10)
[2024-08-21 05:13] LABS: Anion Gap 17 mmol/L (10-20); BUN (Urea Nitrogen) 24 mg/dL (8.4-25.7); Calc. Creatinine Clearance 56 mL/min (70-130); Calcium 9.2 mg/dL (7.8-10.44); Carbon Dioxide 23 mmol/L (23-31); Chloride 100 mmol/L (98-107); Estimated GFR 67; Glucose 111 mg/dL (83-110); Potassium 3.8 mmol/L (3.5-5.1); Sodium 136 mmol/L (136-145)
[2024-08-21] MEDS: Spironolactone 25 MG TAB PO SCH (08:02)
[2024-08-21] MEDS: Metoprolol Succinate XL 25 MG ER.TAB PO SCH (11:01)
[2024-08-22 05:33] LABS: Anion Gap 13 mmol/L (10-20); BUN (Urea Nitrogen) 26 mg/dL (8.4-25.7); Calc. Creatinine Clearance 51 mL/min (70-130); Calcium 9.2 mg/dL (7.8-10.44); Carbon Dioxide 27 mmol/L (23-31); Chloride 101 mmol/L (98-107); Estimated GFR 62; Glucose 110 mg/dL (83-110); Potassium 3.6 mmol/L (3.5-5.1); Sodium 137 mmol/L (136-145)
[2024-08-22] MEDS ORDERED: CATH FS PRN (07:30)
[2024-08-22] MEDS: Furosemide 40 MG TAB PO SCH (08:05)
[2024-08-22] MEDS ORDERED: Iopamidol 370 76% 100 ML VIAL ONE (11:26)
[2024-08-22] MEDS ORDERED: Nitroglycerin 50 MG/250 ML BOT 0 ML ONE (11:48)
[2024-08-22] MEDS ORDERED: Midazolam HCl 2 mg/2 ml Vial ONE (12:41)
[2024-08-22] MEDS ORDERED: Nitroglycerin 0.4 MG TAB (25 Tab Bottle) SL PRN (14:40)
[2024-08-22] MEDS ORDERED: Acetaminophen/Codeine 30-300mg Tablet PO PRN ×2 (14:40)
[2024-08-22] MEDS ORDERED: Sodium Chloride 0.9% 200 ML IV PRN (14:40)
[2024-08-23 05:25] LABS: Anion Gap 14 mmol/L (10-20); BUN (Urea Nitrogen) 25 mg/dL (8.4-25.7); Calc. Creatinine Clearance 49 mL/min (70-130); Calcium 9.5 mg/dL (7.8-10.44); Carbon Dioxide 27 mmol/L (23-31); Chloride 98 mmol/L (98-107); Estimated GFR 58; Glucose 132 mg/dL (83-110); Potassium 3.7 mmol/L (3.5-5.1); Sodium 135 mmol/L (136-145)
[2024-08-23 11:35] VITALS: BP 110/63; TEMP 97.9
== END 2024-08-23 15:48 | disposition home or self-care (01) | DRG 286 ==
LOC: ERS 19:43 → OBS 23:54
PROVIDERS: ADMIT Internal Medicine; ATTEND Internal Medicine Critical Care Medicine
PROC: 4A023N7 Measurement of Cardiac Sampling and Pressure, Left Heart, Percutaneous Approach (ICD-10-PCS; principal; 2024-08-22)
PROC: B2111ZZ Fluoroscopy of Multiple Coronary Arteries using Low Osmolar Contrast (ICD-10-PCS; 2024-08-22)
PROC: B2151ZZ Fluoroscopy of Left Heart using Low Osmolar Contrast (ICD-10-PCS; 2024-08-22)
DX: I11.0 Hypertensive heart disease with heart failure (principal); I50.33 Acute on chronic diastolic (congestive) heart failure; I47.10 Supraventricular tachycardia, unspecified; I48.21 Permanent atrial fibrillation; M10.9 Gout, unspecified; E11.9 Type 2 diabetes mellitus without complications; D63.8 Anemia in other chronic diseases classified elsewhere; I25.10 Atherosclerotic heart disease of native coronary artery without angina pectoris; I95.1 Orthostatic hypotension; Z98.890 Other specified postprocedural states; Z88.0 Allergy status to penicillin; Z95.0 Presence of cardiac pacemaker; Z79.4 Long term (current) use of insulin; Z79.899 Other long term (current) drug therapy; Z79.82 Long term (current) use of aspirin; Z79.2 Long term (current) use of antibiotics; Z91.148 Patient's other noncompliance with medication regimen for other reason
CPT/HCPCS: 36415; 36416; 71045; 80048; 80053; 83880; 84484; 85025; 93005; 93010; 93306; 93458; 94760; 96374; 99152; C1769; J1650; J1940; J2250; Q9967

== ENCOUNTER 2025-05-01 12:47 | Inpatient (IN) | payer MEDICARE ==
[2025-05-01 16:47] VITALS: BMI 20.9
[2025-05-01] MEDS ORDERED: Glucagon 1 MG/ML KIT IM PRN (17:54)
[2025-05-01] MEDS ORDERED: Senokot S 8.6-50 MG TAB PO PRN ×2 (17:54→17:58)
[2025-05-01] MEDS ORDERED: Guaifenesin DM 100-10/5 ML UDCUP PO PRN (17:54)
[2025-05-01] MEDS ORDERED: Ondansetron PF 4 MG/2 ML Vial IVP PRN (17:54)
[2025-05-01] MEDS ORDERED: Calcium Carbonate 500 MG ChewTAB PO PRN (17:54)
[2025-05-01] MEDS ORDERED: Acetaminophen 325 MG TAB PO PRN (17:54)
[2025-05-01] MEDS ORDERED: Dextrose 50% Abboject 50 ML SYRINGE SLOW IVP PRN (17:54)
[2025-05-01] MEDS: metFORMIN 500 MG TAB PO SCH (21:06)
[2025-05-01] MEDS: Mirtazapine 15 MG TAB PO SCH (21:06)
[2025-05-01] MEDS: Allopurinol 100 MG TAB PO SCH (21:06)
[2025-05-01] MEDS: Sulfameth/Trimethoprim DS 800-160mg TAB PO SCH (21:07)
[2025-05-02 04:31] LABS: #Basophils 0.06 10x3/uL (0.0-0.2); #Eosinophils 1.66 10x3/uL (0.0-0.7); #Monocytes 0.77 10x3/uL (0.11-0.59); #Neutrophils 3.42 10x3/uL (1.40-6.50); %Basophils 0.7 % (0.0-1.0); %Eosinophils 20.7 % (0.0-10.0); %Lymphocytes 26.2 % (21.0-51.0); %Monocytes 9.6 % (0.0-10.0); %Neutrophils 42.7 % (42.0-75.0); Hematocrit 38.5 % (42.0-52.0); Hemoglobin 12.3 g/dL (14.0-18.0); Mean Corpuscular Hemoglobin 32.9 pg (27.0-31.0); Mean Corpuscular Volume 102.9 fL (78.0-98.0); Platelet Count 184 10x3/uL (130-400); Red Blood Cell (RBC) Count 3.74 mill/uL (4.70-6.10); White Blood Cell (WBC) Count 8.02 10x3/uL (4.8-10.8)
[2025-05-02 04:52] LABS: Anion Gap 15 mmol/L (10-20); BUN (Urea Nitrogen) 19 mg/dL (8.4-25.7); CK (CPK) 65 U/L (30-200); Calc. Creatinine Clearance 44 mL/min (70-130); Calcium 9.2 mg/dL (7.8-10.44); Carbon Dioxide 24 mmol/L (23-31); Chloride 104 mmol/L (98-107); Glucose 112 mg/dL (83-110); Potassium 4.8 mmol/L (3.5-5.1); Sodium 138 mmol/L (136-145)
[2025-05-02 08:18] LABS: Bacteria/HPF 2+ HPF (None Seen); Glucose, Urine (Dipstick) 300 mg/dL (Negative); Leukocyte 500 Leu/uL (Negative); Protein, Urine (Dipstick) 10 mg/dL (Neg-Trace); RBC/HPF 0-3 HPF (0-3); Specific Gravity, Urine 1.018 (1.002-1.036); WBC/HPF 21-50 HPF (0-3)
[2025-05-02] MEDS: Aspirin 81 mg Enteric Coated Tablet PO SCH (09:15)
[2025-05-02] MEDS: Cyanocobalamin (Vitamin B-12) 1,000 MCG TAB PO SCH (09:15)
[2025-05-02] MEDS: Spironolactone 25 MG TAB PO SCH (09:15)
[2025-05-02] MEDS: Enoxaparin 40 MG (0.4 mL) SYRINGE SC SCH (09:16)
[2025-05-02] MEDS: Furosemide 20 MG TAB PO SCH (09:16)
[2025-05-02] MEDS: Multivit, Therapeutic 1 TAB PO SCH (09:18)
[2025-05-02] MEDS: Pantoprazole 40 MG DR.TAB PO SCH (09:18)
[2025-05-03 04:37] LABS: #Basophils 0.05 10x3/uL (0.0-0.2); #Eosinophils 1.70 10x3/uL (0.0-0.7); #Monocytes 0.85 10x3/uL (0.11-0.59); #Neutrophils 4.98 10x3/uL (1.40-6.50); %Basophils 0.5 % (0.0-1.0); %Eosinophils 17.0 % (0.0-10.0); %Lymphocytes 24.1 % (21.0-51.0); %Monocytes 8.5 % (0.0-10.0); %Neutrophils 49.7 % (42.0-75.0); Hematocrit 36.4 % (42.0-52.0); Hemoglobin 11.8 g/dL (14.0-18.0); Mean Corpuscular Hemoglobin 33.3 pg (27.0-31.0); Mean Corpuscular Volume 102.8 fL (78.0-98.0); Platelet Count 212 10x3/uL (130-400); Red Blood Cell (RBC) Count 3.54 mill/uL (4.70-6.10); White Blood Cell (WBC) Count 10.01 10x3/uL (4.8-10.8)
[2025-05-03 04:56] LABS: Anion Gap 13 mmol/L (10-20); BUN (Urea Nitrogen) 26 mg/dL (8.4-25.7); Calc. Creatinine Clearance 38 mL/min (70-130); Calcium 9.2 mg/dL (7.8-10.44); Carbon Dioxide 24 mmol/L (23-31); Chloride 104 mmol/L (98-107); Glucose 126 mg/dL (83-110); Potassium 4.5 mmol/L (3.5-5.1); Sodium 136 mmol/L (136-145)
[2025-05-03] MEDS: Albumin 25% 25 GM (100 mL) BOT IVPB SCH (20:22)
[2025-05-04 05:33] LABS: Anion Gap 15 mmol/L (10-20); BUN (Urea Nitrogen) 24 mg/dL (8.4-25.7); Calc. Creatinine Clearance 38 mL/min (70-130); Calcium 8.8 mg/dL (7.8-10.44); Carbon Dioxide 19 mmol/L (23-31); Chloride 106 mmol/L (98-107); Glucose 183 mg/dL (83-110); Potassium 4.6 mmol/L (3.5-5.1); Sodium 135 mmol/L (136-145)
[2025-05-04] MEDS: PNEUMOC 20-VAL CONJ-DIP CRM/PF 0.5 ML SYRINGE IM ONE (16:27)
[2025-05-05] MEDS: Oxybutynin 5 MG TAB PO SCH (01:03)
[2025-05-05] MEDS: Melatonin 3 MG TAB PO PRN (01:03)
[2025-05-05 02:38] LABS: Bacteria/HPF None Seen HPF (None Seen); CAUTI Indications for Culture Dysuria,urgency,freq; Glucose, Urine (Dipstick) Greater than 1000 mg/dL (Negative); Leukocyte Negative Leu/uL (Negative); Protein, Urine (Dipstick) Negative (Neg-Trace); RBC/HPF 0-3 HPF (0-3); Specific Gravity, Urine 1.012 (1.002-1.036); WBC/HPF 0-3 HPF (0-3)
[2025-05-05 02:42] LABS: Urine Culture Reflex No No
[2025-05-05 10:01] LABS: Anion Gap 15 mmol/L (10-20); BUN (Urea Nitrogen) 26 mg/dL (8.4-25.7); Calc. Creatinine Clearance 43 mL/min (70-130); Calcium 9.1 mg/dL (7.8-10.44); Carbon Dioxide 21 mmol/L (23-31); Chloride 104 mmol/L (98-107); Glucose 122 mg/dL (83-110); Potassium 4.6 mmol/L (3.5-5.1); Sodium 135 mmol/L (136-145)
[2025-05-05 17:08] VITALS: BP 109/57; TEMP 98.4
== END 2025-05-05 18:00 | disposition home or self-care (01) | DRG 551 ==
LOC: 2NO 16:31
PROVIDERS: ADMIT Internal Medicine; ATTEND Student in an Organized Health Care Education/Training Program
PROC: 30233J1 Transfusion of Nonautologous Serum Albumin into Peripheral Vein, Percutaneous Approach (ICD-10-PCS; principal; 2025-05-03)
DX: S32.17XA Type 4 fracture of sacrum, initial encounter for closed fracture (principal); I21.A1 Myocardial infarction type 2; I50.32 Chronic diastolic (congestive) heart failure; N39.0 Urinary tract infection, site not specified; Z66 Do not resuscitate; I10 Essential (primary) hypertension; E78.5 Hyperlipidemia, unspecified; D64.9 Anemia, unspecified; I25.10 Atherosclerotic heart disease of native coronary artery without angina pectoris; E11.65 Type 2 diabetes mellitus with hyperglycemia; N40.0 Benign prostatic hyperplasia without lower urinary tract symptoms; M10.9 Gout, unspecified; I48.0 Paroxysmal atrial fibrillation; E86.0 Dehydration; F03.90 Unspecified dementia, unspecified severity, without behavioral disturbance, psychotic disturbance, mood disturbance, and anxiety; W19.XXXA Unspecified fall, initial encounter; Z95.818 Presence of other cardiac implants and grafts; Z98.890 Other specified postprocedural states; Z95.0 Presence of cardiac pacemaker; Z90.49 Acquired absence of other specified parts of digestive tract; Z79.899 Other long term (current) drug therapy; Z79.82 Long term (current) use of aspirin; Z79.891 Long term (current) use of opiate analgesic; Z79.84 Long term (current) use of oral hypoglycemic drugs; Z85.46 Personal history of malignant neoplasm of prostate
CPT/HCPCS: 36415; 36416; 80048; 81001; 82550; 84443; 84484; 85025; 90471; 90677; 93005; 93010; 93306; G0009; J1650; J1815; J7030; P9047